=== PATIENT | male | born 1940 | race Caucasian/White ===

== ENCOUNTER 2020-12-17 10:24 | Outpatient (CLI) | payer MEDICARE, OTHER, SELFPAY ==
--- NOTE | 2020-12-17 10:30 | ECG_ITS ---
Measurements Intervals [place] Rate: 64 P: 32 WI: 241 QRS: 34 QRSD: 98 T: 29 QT: 385 QTc: 400 Interpretive Statements SINUS RHYTHM WITH FIRST DEGREE AV BLOCK BASELINE ARTIFACT- I, II, III, AVR, AVL, AVF ABNORMAL ECG Electronically Signed On 12-17-2020 10:58:28 CDT by Williams Win D.O.
== END 2020-12-17 10:25 | disposition home or self-care (01) ==
PROVIDERS: PCP Internal Medicine; Visit Provider Orthopaedic Surgery
DX: Z01.818 Encounter for other preprocedural examination (principal); I10 Essential (primary) hypertension; I44.0 Atrioventricular block, first degree
CPT/HCPCS: 93005

== ENCOUNTER 2020-12-19 03:56 | Day surgery (SDC) | payer MEDICARE, OTHER, SELFPAY ==
[2020-12-11 14:34] VITALS: BMI 25.0
--- NOTE | 2020-12-18 16:27 | PM.IMHP ---
H&P: HPI History of Present Illness Date/Time: 12/18/20 16:27 Chief Complaint: right ankle and hindfoot pain, deformity Narrative: 80-year-old gentleman with chronic right hindfoot pain and deformity. Unrelieved with bracing, injection, anti-inflammatory medication, accommodative shoes and conservative measures. Symptoms on a daily basis. Affect daily activity including standing and ambulation. Presents for operative treatment. Review of Systems Constitutional: Constitutional: Denies fever(s) Eyes: Eyes: Denies blurry vision ENT: Reports Normal hearing present Cardiovascular: Cardiovascular: Denies chest pain and Denies dyspnea Respiratory: Respiratory: Denies dyspnea and Denies wheezing Gastrointestinal: Gastrointestinal: Denies abdominal pain Genitourinary: Genitourinary: Denies urinary urgency Musculoskeletal: Musculoskeletal: Reports as per HPI and Denies numbness Integumentary/Breasts: Skin/Breast: Denies changing lesions and Denies sores Neurologic: Reports Normal hearing present, Denies behavioral changes, Denies confusion, Denies numbness and Denies convulsions Psychiatric: Psychiatric: Denies behavioral changes, Denies confusion and Denies hallucinations Endocrine: Endocrine: Denies heat intolerance Hematologic/Lymphatic: Hematologic/Lymphatic: Denies easy bleeding Allergic/Immunologic: Allergic/Immunologic: Denies wheezing PMFSH Past Medical History Medical History Arthritis of right subtalar joint Hearing loss Inflammatory arthritis Wears glasses Surgical History Surgical History History of quadruple bypass Social History Social History Smoking status: Never smoker Alcohol intake: current Alcohol use details: 2 per month Spiritual care concerns: No Meds Home Medications and Allergies Home Medications Medication Instructions Recorded Confirmed Type aspirin 81 mg tablet,delayed 81 mg PO DAILY 11/06/20 12/11/20 History release levothyroxine 100 mcg capsule 100 mcg PO DAILY 11/06/20 12/11/20 History metoprolol tartrate 25 mg tablet 25 mg PO DAILY 11/06/20 12/11/20 History simvastatin 20 mg tablet 20 mg PO DAILY 11/06/20 12/11/20 History tamsulosin 0.4 mg capsule 0.4 mg PO DAILY 11/06/20 12/11/20 History ibuprofen 800 mg PO Q6H PRN 12/11/20 12/11/20 History mbyimcqpxqnr-efn-vjkj-FA-vit K 1 tablet PO DAILY 12/11/20 12/11/20 History [Adults Multivitamin] Allergies Allergy/AdvReac Type Severity Reaction Status Date / Time No Known Allergies Allergy Verified 12/11/20 14:10 Exam Const: General: healthy appearing; No in distress or confusion Orientation/consciousness: oriented to person, oriented to place, oriented to time and No confusion HENMT: Head: normal to inspection, normocephalic and atraumatic Eyes: Conjunctivae: conjunctivae normal Sclera: sclerae normal Neck: Neck: supple and nontender Resp: Effort & Inspection: normal respiratory effort and no audible wheezes Cardio: Rate: regular rate Rhythm: regular rhythm Skin: General skin exam: no rashes or lesions noted Neuro: General: oriented to person, oriented to place, oriented to time and No confusion Extrem: Right upper extremity: normal to inspection Left upper extremity: normal to inspection Right lower extremity: normal capillary refill, ankle Details: tenderness Location: of the medial malleolus, swelling Details: laterally (sinus tarsi) and abnormal ROM Details: pain with active ROM Details: with inversion and with range as follows ( ankle dorsiflexion -5 degrees, plantar flexion 40?, inversion 10?, eversion 20?) and foot Details: abnormal to inspection (Moderate flatfoot deformity with standing, moderate heel valgus, reduced flexibility) Details: joint swelling (subtalar joint, sinus tarsi), tenderness Location: of the [facility]
[2020-12-19] VITALS (9 sets, daily range): BP systolic 87–151; BP diastolic 55–80; PULSE 43–65; RESP 10–16; TEMP 36.2–36.5; O2SAT 98–100
--- NOTE | ~2020-12-19 | XR_ITS ---
EXAMINATION: XR surgery orthopedic DATE: 12/19/2020 09:42 INDICATION: Right foot arthrodesis TECHNIQUE: 4 fluoroscopic images of the right ankle and hindfoot were obtained during procedure perfo rmed by Dr. Grossman. Radiologist was not present for the imaging or procedure. The amount of fluorosc opy time used during this procedure was 0.5 minutes. COMPARISON: None. FINDINGS: Images demonstrate initially guide pin placement and subsequently fixation with a cannulated compress ion screw and second cannulated lag screw across the subtalar joint for right hindfoot arthrodesis. A lignment appears near-anatomic. No fracture. Polyarticular osteoarthritis, moderate severity at the c alcaneocuboid joint, mild to moderate at the right ankle and mild at the talonavicular and naviculocu neiform articulations. Expected postoperative gas at the subtalar joint and sinus Tarsi. IMPRESSION: 1. Near-anatomic alignment post subtalar arthrodesis with screw fixation. Reviewed, dictated and finalized at location A.
[2020-12-19] MEDS: ACETAMINOPHEN 500 MG TABLET 1000 MG PO (06:50)
[2020-12-19] MEDS: KETOROLAC 15 MG/ML VIAL (*BKC) IV PUSH (06:51)
[2020-12-19] MEDS: LACTATED RINGERS 1,000 ML 30 ML IV CONT ×2 (06:51→10:04)
--- NOTE | 2020-12-19 07:04 | WPDANESEPPF ---
Anes - Initial Pre Proc Eval Procedure: Operation Date: 12/19/20 07:30 Proposed Procedures p Right Subtalar Arthrodesis, Possible Iliac Crest Bone Graft Aspirate(Right) - Moe Grossman MD Date/Time: 12/19/20 07:04 Surgeon: Moe Grossman MD Pre Op Diagnosis: right subtalar arthritis Patient Data Age: 80 Gender: M Height: 1.73 m Weight: 74.85 kg Last Vital Signs Temp 36.5 C 12/19/20 07:01 Pulse 58 L 12/19/20 07:01 Resp 16 12/19/20 07:01 BP 151/80 H 12/19/20 07:01 Pulse Ox 100 12/19/20 07:01 Allergies Allergy/AdvReac Type Severity Reaction Status Date / Time No Known Allergies Allergy Verified 12/19/20 06:37 Home Medications Medication Instructions Recorded Confirmed Type aspirin 81 mg tablet,delayed 81 mg PO DAILY 11/06/20 12/19/20 History release levothyroxine 100 mcg capsule 100 mcg PO DAILY 11/06/20 12/19/20 History metoprolol tartrate 25 mg tablet 25 mg PO DAILY 11/06/20 12/19/20 History simvastatin 20 mg tablet 20 mg PO DAILY 11/06/20 12/19/20 History tamsulosin 0.4 mg capsule 0.4 mg PO DAILY 11/06/20 12/19/20 History ibuprofen 800 mg PO Q6H PRN 12/11/20 12/19/20 History xmsrrxhpkxht-waw-yfjp-FA-vit K 1 tablet PO DAILY 12/11/20 12/19/20 History [Adults Multivitamin] Patient hx anesthesia problems: none Family hx anesthesia problems: none [facility] Past Medical History Medical History (Updated 12/19/20 @ 07:04 by Ayo Zaidi MD) Arthritis of right subtalar joint CAD (coronary artery disease) Hearing loss HTN (hypertension) Hyperlipidemia Inflammatory arthritis Wears glasses Surgical History Surgical History (Updated 12/19/20 @ 07:04 by Ayo Zaidi MD) History of quadruple bypass History of total knee arthroplasty Social History Social History Smoking status: Never smoker Alcohol intake: current Alcohol use details: 2 per month Living arrangements: with family Spiritual care concerns: No Anes - Eval Final PreProcedure Day of Procedure 12/19/20 07:04 Patient weight: normal Heart: regular rate and rhythm Lungs: clear to auscultation Airway: Mallampati scale class II Neurological: alert and oriented Last oral intake: >/= 8 hours ASA classification: III Emergent: no Anesthetic plan: proceed Anesthesia type and monitoring: general ETT and standard monitoring Informed Consent: The patient's anesthetic plan and its attendant risks and benefits were discussed with the patient/family/POA. Questions were solicited and answers provided to the satisfaction of the patient/family/POA.
--- NOTE | 2020-12-19 07:10 | WPDHPUPDATE1 ---
History and Physical Update Update Date/Time: 12/19/20 07:10 History and Physical has been reviewed, including an updated exam of the patient. There are NO changes in the patient's condition. Risks, benefits, and alternatives have been discussed and questions answered. Patient agrees to proceed with procedure.
[2020-12-19] MEDS: ceFAZolin 2 GM/D5W 50 ML 2 GM/50 ML BAG IVPB (07:30)
[2020-12-19 08:27] LABS: Basophils Percent Auto 0.3 % (0.2-1.2); Eosinophils Absolute Auto 0.2 K/mm3 (0-0.3); Eosinophils Percent Auto 5.8 % (0-4.4); Hematocrit 30.9 % (42.0-52.0); Hemoglobin 10.4 g/dL (14.0-18.0); Immature Granulocyte Absolute 0.01 K/mm3 (0.00-0.031); Immature Granulocyte Percent A 0.3 % (0-0.5); Lymphocytes Absolute Auto 1.01 K/mm3 (0.9-3.2); Lymphocytes Percent Auto 26.6 % (18.3-44.2); Mean Corpuscular HGB Conc 33.7 g/dl (32-36); Mean Corpuscular Hemoglobin 35.6 pg (26-34); Mean Corpuscular Volume 105.8 fl (80-100); Mean Platelet Volume 10.1 fl (7.4-10.4); Monocytes Absolute Auto 0.5 K/mm3 (0.1-0.6); Monocytes Percent Auto 13.5 % (2.6-8.5); Neutrophils Percent Auto 53.5 % (45.5-73.1); Platelet Count Result 105 k/mm3 (150-375); Red Blood Count 2.92 M/mm3 (4.6-6.20); Red Cell Distribution Width 13.9 % (11.5-14.5); White Blood Count 3.8 K/mm3 (4.5-10.0)
[2020-12-19] MEDS: BUPIVACAINE/EPINEPHRINE 0.5% 30 ML VIAL INFILTRATE (08:34)
[2020-12-19] MEDS: BUPIVACAINE HCL 0.5% PF 30 ML VIAL INFILTRATE (08:34)
[2020-12-19 08:40] LABS: Rheumatoid Factor < 8.6 IU/ML (<12)
[2020-12-19 08:41] LABS: Anion Gap 7 mmol/L (8-16); Blood Urea Nitrogen 20 mg/dL (9-20); CRP < 0.5 mg/dL (<1.0); Calcium 8.7 mg/dL (8.4-10.2); Carbon Dioxide 25 mmol/L (22-30); Chloride 106 mmol/L (98-107); Estimated CRCL calculation 64 ml/min; Estimated Glomerular Filt Rate > 60; Glucose 103 mg/dL (65-110); Sodium 138 mmol/L (137-145)
[2020-12-19 08:57] LABS: Erythrocyte Sedimentation Rate 83 mm/hr (0-20)
[2020-12-19 09:39] LABS: Uric Acid 5.9 mg/dL (3.5-8.5)
--- NOTE | 2020-12-19 10:17 | W.PM.PROC2 ---
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 Failed conservative treatment with bracing, activity modification, anti-inflammatories and injections. Presents now for operative treatment. 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 Description of Procedure What was done: Patient identified in the preoperative holding. Informed consent given. Operative extremity marked. Patient received intravenous antibiotics. Patient brought to the operating room where underwent general anesthetic by anesthesia team. Positioned semi lateral decubitus on operating room table. gel for the bony prominences placed, VAC beanbag for positioning. Time-out performed confirming the patient, site of the surgery and the plan. Right lower extremity and the right iliac crest prepped draped usual sterile surgical fashion using a ChloraPrep skin solution. The iliac crest was addressed 1st. Local anesthetic with 0.5% Marcaine with epinephrine used. Fifteen blade knife to make an incision posterior to the anterior superior iliac spine. Dissection carried down to the iliac crest. Bone graft retention device then placed through the iliac crest into the intramedullary position. Bone graft dowels obtained. 60 cc of bone marrow aspirate also obtained and concentrated for the platelet layer. Wound thoroughly irrigated antibiotic solution and skin closed with subcutaneous 3 0 Monocryl interrupted suture. Sterile dressing applied. Attention then turned to the right foot. Longitudinal incision made over the sinus tarsi with a 15 blade knife. Hemostasis controlled electrocautery. Capsulotomy performed. 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 This was removed and passed off as specimen. Subtalar joint and prepared with osteotomes, rongeur, curettes. There was destruction lateral portion of the joint with the valgus deformity. We worked to remove cartilage from the medial portion of the joint to realign the subtalar joint. With realignment there is noted to be deficiency on the lateral aspect. Iliac crest bone graft wedge was then opened and fashioned to be used laterally. Subtalar joint was then reduced and provisionally pinned. In image intensification confirmed alignment. Fixation performed with cannulated screws with good compression. Lateral portion of the joint was then repaired with the iliac crest bone graft. The autograft which had been previously obtained was placed into the arthrodesis site prior to fixation. Final positioning checked with image intensification and noted to be good. Wound then thoroughly irrigated antibiotic solution. The fascia repaired with 0 Vicryl interrupted suture. Subcutaneous tissue repaired with 3 Monocryl interrupted sutures skin repaired with 4 nylon running suture. Sterile dressing applied. The patient was then woken from anesthesia, extubated and taken to the recovery room in stable condition. All sponge, needle, instrument counts were correct at the end of the case. Implants Arthrex 7.0 mm headed screw x1, 7.0 mm headless screw x1 Estimated Blood Loss -10.0 Tourniquet Time 85 Drains No Packing No Pathology yes ( synovial tissue from the right ankle subtalar joint) Complications None Condition stable Disposition PACU
[2020-12-23 19:39] LABS: Anti Cyclic Citrullinated Pept <16 Units (<20)
[2020-12-24 12:57] LABS: HLA B27 Negative (Negative)
== END 2020-12-19 12:41 | disposition home or self-care (01) ==
PROVIDERS: PCP Internal Medicine; Visit Provider Orthopaedic Surgery
PROC: (CPT 28750; principal; 2020-12-19 07:30)
DX: M13.871 Other specified arthritis, right ankle and foot (principal); M65.871 Other synovitis and tenosynovitis, right ankle and foot; M1A.9XX1 Chronic gout, unspecified, with tophus (tophi); I10 Essential (primary) hypertension; E78.5 Hyperlipidemia, unspecified; I25.10 Atherosclerotic heart disease of native coronary artery without angina pectoris; Z95.1 Presence of aortocoronary bypass graft; E03.9 Hypothyroidism, unspecified; Z79.899 Other long term (current) drug therapy
CPT/HCPCS: 28725; 20900; 36415; 80048; 84550; 85025; 85652; 86038; 86140; 86200; 86430; 86812; 88305; 88309; 88311; A9270; C1713; J0690; J1100; J1170; J1644; J1885; J2250; J2370; J2405; J2704; J2710; J3010; J7120

== ENCOUNTER 2021-05-22 09:00 | Outpatient (RCR) | payer MEDICARE, OTHER, SELFPAY ==
--- NOTE | 2021-04-17 11:22 | PTOPEVAL ---
Thank you for referring Yohan Villalba to [facility].? The patient is scheduled to be seen for therapy? 2x/week for 4-6 weeks. Please review, sign, date and return this plan of care LAITH. I agree with and certify that the following plan of care is medically necessary. Referring Physician Date Admitting Provider: Attending Provider: Moe Grossman MD Referring Provider: *PT Outpatient Evaluation Start: 04/17/21 08:52 Freq: Status: Active Protocol: Document 04/17/21 09:00 AW (Rec: 04/17/21 09:44 AW [id number]) Therapy Assessment Status Assessment Status Assessment Status Evaluation Outpatient Past Medical History Past Medical History Source of Past Medical History Recalled from Previous Visit, Confirmed with Patient/Family Neurological History Hx Neurological Disorders No Significant History Cardiovascular History Hx Coronary Artery Bypass Graft Yes: 4 VESSEL EITHER IN 2010 Hx Hypercholesterolemia Yes Hx Hypertension Yes Hx Other Cardiac Disorders Yes: DR VELA ONCE A YR LAST SEEN JAN 2021 Respiratory History Hx Respiratory Disorders No Significant History Gastrointestinal History Hx Gastrointestinal Disorders No Significant History Genitourinary History Hx Genitourinary Disorders No Significant History Musculoskeletal History Hx Joint Replacement Yes: LTKA EITHER 2007 Hx Other Musculoskeletal Disorders Yes: RT SUBTALAR ARTHRITIS Hematological History Hx Hematological Disorders No Significant History Endocrine History Hx Hypothyroidism Yes HEENT History Hx HEENT Disorders No Significant History Integumentary History Hx Skin Disorders No Significant History Reproductive History Hx Reproductive Disorders No Significant History Psychosocial History Hx Psychiatric Disorders No Significant History Pain History History of Any Previous or Ongoing No Significant History Instance of Pain Anesthesia History Hx Anesthesia Reactions No Significant History Evaluation Information Problem Diagnosis M19.071; Z48.89-OA of R ankle/ foot; surgical aftercare Subjective Information Sprained ankle ~25 years ago, Query Text:As Reported By Patient/ most pain within last year, Family december 18 had 2 pins put in, followed up with Chauncey ~2 weeks ago, wears boot at home about 30% of the time at home, goes back and follows up in mid-[place] going up/down stairs is still difficult, walking sometimes feels better,
--- NOTE | 2021-05-22 14:34 | PCPTNOTE ---
Admitting Provider: Attending Provider: Moe Grossman MD Patient:Yohan Villalba Date of :1940 05/22/21 PHYSICAL THERAPY DISCHARGE SUMMARY Yohan has been seen for 9 PT visits since initial evaluation. He has demonstrated significant improvements in his overall strength and ROM since starting PT services. He reports that he feels things are going very well and knows there are not exactly where they were prior to surgery but that he also has to keep doing his exercises at home to continue to progress. He continues to demonstrate decreased heel strike and at times an antalgic gait pattern. He is being discharged from skilled PT at this time with education in a home exercise program and invited to call with any questions or concerns. Thank you for referring this patient to [facility]. Please review, sign, date and return this discharge summary LAITH. I have been updated about the patient's current status and I agree with discharge from the above service at this time. Referring Physician Date
== END 2021-07-03 09:07 | disposition home or self-care (01) ==
LOC: ANHHIPT 09:00
PROVIDERS: PCP Internal Medicine; Visit Provider Orthopaedic Surgery
DX: M19.071 Primary osteoarthritis, right ankle and foot (principal)
CPT/HCPCS: 97110; 97112; 97116; 97140; 97161; 97530

== ENCOUNTER 2023-06-22 12:48 | Outpatient (RCR) | payer MEDICARE, SELFPAY ==
--- NOTE | 2023-06-22 13:59 | PTOPEVAL1 ---
Assessment and note entered by Pearl Styles, PT Evaluation Information Assessment Status Evaluation Diagnosis right shoulder pain, sprain unspec rotator cuff Subjective Information Started bothering him about a year ago. Can move shoulder but when tries to lift a gallon of milk can't raise higher than shoulder level. Can feel it in scapula with lifting. Thinks with exercises can probably get it . No problems with other activities Can hear it clicking too Reported Pain Level Pain Score 0: Self Report Assessment PT Clinical Summary Pt reports shoulder has been bothersome for about a year. States has no pain currently, reports gets a clicking with rolling RUE posterior and around to anterior. Special testing shows likely rotator cuff tear likely full thickness due to inability to hold against resistance testing. Discussed findings with patient and encouraged pt to perform normal activities without hesitance and to listen to your body . Pt does not appear to require skilled services at this time. Plan of Care PT Services Indicated No These treatments will address the objective and functional deficits as defined above. The patient will be advanced safely and appropriately in order for the patient to progress towards his/her prior level of function. Additional exercises will be introduced and as well as a comprehensive home exercise program upon discharge, if needed, ?to ensure carryover of functional gains achieved in the clinic. This treatment plan has been reviewed and agreement upon by the patient.
== END 2023-06-22 14:33 | disposition home or self-care (01) ==
LOC: ANHHIPT 12:48
PROVIDERS: PCP Family Medicine; Visit Provider Family Medicine
DX: M25.511 Pain in right shoulder (principal); S43.429D Sprain of unspecified rotator cuff capsule, subsequent encounter
CPT/HCPCS: 97161

== ENCOUNTER 2024-05-16 09:50 | Outpatient (CLI) | payer MEDICARE, SELFPAY ==
--- NOTE | 2024-05-16 11:38 | ECG_ITS ---
Test Date: 2024-05-16 11:55:15 Measurements Intervals [place] Rate: 64 P: 99 FL: 272 QRS: 73 QRSD: 107 T: 52 QT: 423 QTc: 438 Interpretive Statements SINUS RHYTHM WITH FIRST DEGREE AV BLOCK WITH OCCASIONAL SUPRAVENTRICULAR PREMATURE COMPLEXES WARNING: DATA QUALITY MAY AFFECT INTERPRETATION No previous ECG available for comparison Electronically Signed On 05-16-2024 15:28:58 DEATH CLEARANCE COORDINATOR by Satish Webb M.D.
[2024-05-16 12:48] LABS: Albumin Level 4.3 g/dL (3.5-5.1)
[2024-05-16 12:50] LABS: Add Urine Microscopic? YES; Appearance Urine Clear (Clear); Bacteria Urine None Seen /hpf; Bilirubin Urine Negative (Negative); Blood Urine Negative (Negative); Color Urine Yellow (Yellow); Glucose Urine UA Negative (Negative); INR 1.1; Ketones Urine Negative (Negative); Leukocyte Esterase Ur Negative LEU/UL (Negative); Nitrate Urine Negative (Negative); Non Pathogenic Casts 0-2; Protein Urine Trace mg/dL (Negative); Prothrombin Time 14.3 Seconds (11.1-14.7); RBC Urine 0-2 /hpf (0-2); Specific Grav Ur 1.021 (1.001-1.035); Squamous Epithelial Cell Urine None Seen /hpf (Few); WBC Urine 0-5 /hpf (0-3)
[2024-05-16 12:51] LABS: Partial Thromboplastin Time 34.2 Seconds (22.3-36.8)
[2024-05-16 13:02] LABS: Urine Cotinine NEGATIVE
[2024-05-16 14:10] LABS: MRSA (PCR) NOT DETECTED (NOT DETECTE)
== END 2024-05-16 09:51 | disposition home or self-care (01) ==
PROVIDERS: PCP Nurse Practitioner Family; Visit Provider Orthopaedic Surgery
DX: M17.11 Unilateral primary osteoarthritis, right knee (principal); Z01.818 Encounter for other preprocedural examination
CPT/HCPCS: 80307; 81001; 82040; 85610; 85730; 87641; 93005

== ENCOUNTER 2024-05-31 14:18 | Day surgery (SDC) | payer MEDICARE, SELFPAY ==
[2024-05-16 10:18] VITALS: BP 131/74; PULSE 62; RESP 16; TEMP 36.7; O2SAT 98; BMI 24.5
--- NOTE | 2024-05-16 10:42 | PC.NURSE ---
Report to the Outpatient Waiting Room, entrance under the green pavilion located off [facility], at time ___8:30AM____ on date ___05/31/24____. Planned Procedure Time: ___10:30AM .? Time changes happen often and if your time is changed the preop area will call you the afternoon before. - You and your visitor will be asked to self-screen and do not enter if you have any COVID symptoms. Please call surgeon if you need to reschedule. - A mask is optional within the hospital at this time. Patients may have clear liquids (water, carbonated beverages, clear teas, apple juice) until 3 hours prior to surgery (7:30AM) with a maximum of 20 ounces. - No food from midnight until time of surgery and no smoking. This includes no chewing gum, candy or mints. Take only the following medications with a SIP of water on the morning of surgery: ___LEVOTHYROXINE, METOPROLOL DO NOT STOP ANY OF YOUR OTHER PRESCRIPTION MEDICATIONS PRIOR TO SURGERY EXCEPT THE FOLLOWING Medications to discontinue per physician ____HOLD ALL VITAMINS/SUPPLEMENTS 3 DAYS PRE-OP PER ANESTHESIA- LAST DOSE 05/27/24 HOLD ASPIRIN AND CLOPIDOGREL PER DR MCLEOD Please no make-up, nail grenadian, hairspray, perfume, deodorant, or body powder the day of surgery.? No jewelry (including any body piercings) or valuables the day of surgery, leave them at home.? Please take a shower or bath the night before, or the morning of, surgery with an antibacterial soap.? Wear comfortable, loose fitting clothing.? Children are encouraged to wear pajamas. - Jewelry must be removed prior to entering the operating room.? Rings and piercings that are not removed may be cut off. - The hospital will not accept responsibility for valuables.? - Please leave all valuables, including medications, at home the day of surgery. If you are going home after surgery, a licensed four horse hitch driver must drive you home.? - NO public transportation without another adult if you receive anesthesia. - We recommend that an adult stay with you for 24 hours following discharge. - We also recommend that you do not drive, make important decision, drink alcoholic beverages, or take any drugs that were not prescribed by your health care provider for at least 24 hours after your discharge time. Follow any additional instructions given to you from your surgeon. HIBICLENS SHOWERS PER DR MCLEOD Telephone instructions given to ___PATIENT and asked if any additional questions and then verbalized understanding. Patient advised to call surgeon office or pre surgery nurse liaison [phone] if any additional questions.
[2024-05-31] VITALS (15 sets, daily range): BP systolic 98–167; BP diastolic 64–90; PULSE 58–77; RESP 10–20; TEMP 36.2–36.9; O2SAT 95–100
--- NOTE | ~2024-05-31 | XR_ITS ---
EXAMINATION: [id number] DATE: 05/31/2024 13:20 INDICATION: Right knee arthroplasty. Postop. TECHNIQUE: 2 views of right knee were obtained. COMPARISON: None. FINDINGS: There is a total right knee arthroplasty without patellar resurfacing in near-anatomic alig nment. No fracture. There is gas in the knee joint and soft tissues, consistent with recent surgery. Anterior skin fabian are noted. IMPRESSION: 1. Total right knee arthroplasty in near-anatomic alignment. Reviewed, dictated and finalized at location A. [facility]
--- OUTSIDE RECORDS SUMMARY | 2024-05-31 02:11 | XMS_ITS | Encounter Summary ---
Author Organization [facility] Address [address] [place] [address] Care Team Providers Care Pipe Manufacture Supervisor Name Role Phone Sukhwinder Yuan MD Primary Care Provider [phone] Encounter Details Date Type Department Care Team (Late st Contact Info) Description 10/08/2022 Lab Requisition [facility] [address] [place] [address] Kamille Billings DO [address] [facility] [address] [place] [address] Social History Tobacco Use Types Packs/Day Years Used Date Smoking Tobacco: Never Assessed Sex and Gender Information Value Date Recorded Sex Assigned at Not on file Gender Identity Not on file Sexual Orientation Not on file documented as of this encounter Plan of Treatment Not on file documented as of this encounter Procedures Procedure Name Priority Date/Time Associated Diagnosis Comments DERMATOPATHOLOGY Routine 10/08/2022 9:58 AM CDT documented in this encounter Results * DERMATOPATHOLOGY (10/08/2022 9:58 AM CDT) Case Report Dermatopathology Report ? Case: [id number] ? Authorizing Provider: ??Kamille Billings, DO ?? Collected: ? 10/08/2022 09:58 AM ? Ordering Location: ? [facility] ? Received: ?10/09/2022 08:04 AM ? Pathologist: ? Carmel Dominique, ? MD ? Specimen: ?Skin, right forearm ? 3 4:12 PM CDT DERMATOPATHOLOGY LABORATORY Final Diagnosis Specimen A. 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 The specimen consists of a shave biopsy measuring [id number]. Jar 0. 3 4:12 PM T DERMATOPATHOLOGY LABORATORY Microscopic Description Specimen A. SKIN, right forearm: The epidermis shows parakeratosis, full thickness disorderly maturation of keratinocytes, mitoses at different levels, and dyskeratotic cells. The lesion extends to the base of the biopsy. COMMENT: An invasive squamous cell carcinoma cannot be ruled out. 3 4:12 PM CDT DERMATOPATHOLOGY LABORATORY Disclaimer An external and internal positive and negative controls are appropriate for the histochemical, immunohistochemical and immunofluorescence stain(s) in this case (if any), except where stated explicitly. The performance characteristics of the stain(s) cited in this report were developed and its performance characteristic determined by the Dermatopathology Laboratory at [facility], directed by Dr. Mohan Hitchcock. These tests need not be, and therefore are not, approved by the [place] Food and Drug Administration. The tests are used for clinical purposes. Billing Codes Specimen Charges Stain Charges 92860 1 3 4:12 PM CDT DERMATOPATHOLOGY LABORATORY Embedded Images 3 4:12 PM CDT DERMATOPATHOLOGY LABORATORY Pathology/Cytolo gy TISSUE SPECIMEN FROM SKIN / Unknown 10/08/2022 9:58 AM CDT 10/09/2022 8:04 AM CDT Kamille Billings DO LAB - PATHOLOGY/C YTOLOGY ORDERABLES DERMATOPATHOLOGY LABORATORY [facility] - Department of Dermatology [facility] Medicine [address] [place] [address], [address] [phone] documented in this encounter Visit Diagnoses Not on filedocumented in this encounter Care Teams Pipe Manufacture Supervisor Relationship Specialty Start Date End Date Sukhwinder Yuan MD [address] [place] [phone] PCP - General 01/01/21 documented as of this encounter
--- OUTSIDE RECORDS SUMMARY | 2024-05-31 02:11 | XMS_ITS | Clinical Summary ---
Author Organization [facility] Address [address] [place] [address] Care Team Providers Care Railroad Brake Repairer Name Role Phone Sukhwinder Yuan MD Primary Care Provider Source Comments [facility],non-owned Affiliates and Associated Physician Practices is amultiple site organization consisting of ambulatory clinics and hospital sitesin [place], [place], [place] and [place]. This disclosure is being madepursuant to the Care Everywhere program and may not contain all information available regarding this patient. Last updated 18.[facility] Social History Tobacco Use Types Packs/Day Years Used Date Smoking Tobacco: Never Assessed Sex and Gender Information Value Date Recorded Sex Assigned at Not on file Gender Identity Not on file Sexual Orientation Not on file Plan of Treatment Health Maintenance Due Date Last Done Comments DTAP/TDAP/TD VACCINES (1 - Tdap) 1961 PNEUMOCOCCAL VACCINE 50+ (1 of 1 - PCV) 1992 ZOSTER VACCINE (1 of 2) 1992 Respiratory Syncytial Virus (RSV) Vaccine Pt: or over 60 yrs (1 - 1-dose 75+ series) 2017 COVID-19 VACCINE (2023-2 5 season) 2024 INFLUENZA VACCINE (#1) 2024 DEPRESSION SCREENING 05/03/2024 MEDICARE AWV ? CALENDAR YEAR 2024 HEPATITIS B VACCINE Aged Out No longe r eligible based on patient's age to complete this topic HIB VACCINE Aged Out No longer eligi ble based on patient's age to complete this topic HPV VACCINE Aged Out No longer eligi ble based on patient's age to complete this topic MENINGOCOCCAL (Group B) VACCINE Aged Out No longer eligible based on patient's age to complete this topic MENINGOCOCCAL VACCINE Aged Out No billie topher eligible based on patient's age to complete this topic Care Teams Railroad Brake Repairer Relationship Specialty Start Date End Date Sukhwinder Yuan MD [facility] [place] [place] [address] PCP - General 01/01/21
--- OUTSIDE RECORDS SUMMARY | 2024-05-31 02:11 | XMS_ITS | Encounter Summary ---
Author Organization [facility] Address [address] [place] [address]. [place] [address] [place] [address] Care Team Providers Care Ratoprinter Name Role Phone Sukhwinder Yuan MD Primary Care Provider [phone] Finn Blevins MD Unavailable [phone] Ghulam Ford MD Primary Care Provider [phone] Hortensia Alarcon [facility] Primary Care Provider + Encounter Details Date Type Department Care Team (Late st Contact Info) Description 11/09/2016 Abstract [facility] AT [address] [address] Destinee Medina MA Social History Tobacco Use Types Packs/Day Years Used Date Smoking Tobacco: Never Smokeless Tobacco: Never Alcohol Use Standard Drinks/Week Comments Yes 0 (1 standard drink = 0.6 oz pur e alcohol) Occasionally Sex and Gender Information Value Date Recorded Sex Assigned at Not on file Legal Sex Male 1:49 AM CDT Gender Identity Not on file Sexual Orientation Not on file Occupation Industry Job Start Date Job End Date DQ Not on file Not on file Not on file documented as of this encounter Plan of Treatment Upcoming Encounters Date Type Department Care Team (Late st Contact Info) Description 03/06/2025 1:00 PM LEARNING AND DEVELOPMENT INTERN Appointment [facility] [address] [place] [address] Jose Camacho MD Three [facility]. [address] [place], [place] [address] 03/26/2025 9:30 AM LEARNING AND DEVELOPMENT INTERN Office Visit [facility] [address] [place] [address] Barbara Rosario, DUONG [address] [facility] [address] [place], [place] [address] Finn Blevins MD Three [facility]. [address] [place], [place] [id number] documented as of this encounter Procedures Procedure Name Priority Date/Time Associated Diagnosis Comments CBC (OUTSIDE LAB) Routine 12/05/2018 PROSTATE SPECIFIC ANTIGEN,TOTAL Routine 12/05/2018 COMPREHENSIVE METABOLIC PANEL Routine 12/05/2018 LIPID PANEL Routine 12/05/2018 THYROID STIM HORMONE TSH Routine 12/05/2018 CBC (OUTSIDE LAB) Routine 11/08/2017 CBC (OUTSIDE LAB) Routine 08/24/2017 COMPREHENSIVE METABOLIC PANEL Routine 08/24/2017 LIPID PANEL Routine 08/24/2017 THYROID STIM HORMONE TSH Routine 08/24/2017 FOLATE (OUTSIDE LAB) Routine 10/01/2016 CBC (OUTSIDE LAB) Routine 10/01/2016 VITAMIN B-12 Routine 10/01/2016 PROSTATE SPECIFIC ANTIGEN,TOTAL Routine 10/01/2016 COMPREHENSIVE METABOLIC PANEL Routine 10/01/2016 IRON BINDING TEST Routine 10/01/2016 THYROID STIM HORMONE TSH Routine 10/01/2016 IRON Routine 10/01/2016 FERRITIN Routine 10/01/2016 documented in this encounter Results * PROSTATE SPECIFIC ANTIGEN,TOTAL (12/05/2018) PSA 0.7 12/05/2018 us Doc [facility] Final Result * CBC (OUTSIDE LAB) (12/05/2018) WBC 3.9 HGB 11.8 HCT 34.8 PLT 131 12/05/2018 us Doc [facility] LAB-OUTSIDE/ABSTRACTED Final Result * THYROID STIM HORMONE, TSH (12/05/2018) TSH 1.63 12/05/2018 us Doc [facility] Final Result * COMPREHENSIVE METABOLIC PANEL (12/05/2018) SODIUM S/P/B 141 POTASSIUM S/P/B 4.1 CO2 27 CHLORIDE S/P/B 107 GLUCOSE 114 mg/dL CALCIUM S/P/B 9.2 BUN 23 CREATININE S/P/B 1.02 0.7 - 1.3 EGFR AFR. AMER. 82 EGFR NON-AFR. AMER. 71 <=90 ALKALINE PHOSPHATASE S/P/B 60 ALT 13 AST 20 BILIRUBIN TOTAL S/P/B 0.7 ALBUMIN S/P/B 4.2 3.5 - 5.0 TOTAL PROTEIN S/P/B 7.0 GLOBULIN 2.8 12/05/2018 us Doc [facility] Final Result * LIPID PANEL (12/05/2018) CHOLESTEROL 106 HDL 46 TRIGLYCERIDES 117 NON HDL CHOLESTEROL 60 LDL (CALCULATED) 40 12/05/2018 us Doc [facility] Final Result * CBC (OUTSIDE LAB) (11/08/2017) WBC 4.0 HGB 12.5 HCT 36.9 PLT 130 11/08/2017 us Doc [facility] LAB-OUTSIDE/ABSTRACTED Final Result * THYROID STIM HORMONE, TSH (08/24/2017) TSH 2.619 08/24/2017 us Doc [facility] Final Result * LIPID PANEL (08/24/2017) CHOLESTEROL 89 HDL 48 TRIGLYCERIDES 85 LDL (CALCULATED) 24 08/24/2017 us Doc [facility] Final Result * COMPREHENSIVE METABOLIC PANEL (08/24/2017) SODIUM S/P/B 141 POTASSIUM S/P/B 4.1 CO2 27.2 CHLORIDE S/P/B 105 GLUCOSE 100 mg/dL CALCIUM S/P/B 8.6 BUN 22 CREATININE S/P/B 0.96 0.7 - 1.3 EGFR AFR. AMER. 89 EGFR NON-AFR. AMER. 77 <=90 ALKALINE PHOSPHATASE S/P/B 66 ALT 17 AST 27 BILIRUBIN TOTAL S/P/B 0.4 ALBUMIN S/P/B 3.8 3.5 - 5.0 TOTAL PROTEIN S/P/B 7.1 08/24/2017 us Doc [facility] Final Result * CBC (OUTSIDE LAB) (08/24/2017) WBC 4.2 HGB 11.8 HCT 35.8 PLT 112 08/24/2017 us Doc [facility]-OUTSIDE/ABSTRACTED Final Result * PROSTATE SPECIFIC ANTIGEN,TOTAL (10/01/2016) PSA 0.6 10/01/2016 us Doc [facility] Final Result * FOLATE (OUTSIDE LAB) (10/01/2016) FOLATE 16.4 10/01/2016 Doc [facility]-OUTSIDE/ABSTRACTED Final Result * VITAMIN B-12 (10/01/2016) Pathologist [facility] VITAMIN B12 S/P/B 379 10/01/2016 us Doc [facility] Final Result * CBC (OUTSIDE LAB) (10/01/2016) WBC 4.1 HGB 12.3 HCT 35.3 PLT 151 10/01/2016 us Doc [facility]-OUTSIDE/ABSTRACTED Final Result * THYROID STIM HORMONE, TSH (10/01/2016) TSH 2.52 10/01/2016 us Doc [facility] Final Result * COMPREHENSIVE METABOLIC PANEL (10/01/2016) SODIUM S/P/B 138 POTASSIUM S/P/B 4.1 CO2 26 CHLORIDE S/P/B 103 GLUCOSE 89 CALCIUM S/P/B 9.2 BUN 24 CREATININE S/P/B 0.93 0.7 - 1.3 EGFR AFR. AMER. 93 EGFR NON-AFR. AMER. 81 <=90 ALKALINE PHOSPHATASE S/P/B 51 ALT 13 AST 20 BILIRUBIN TOTAL S/P/B 0.5 ALBUMIN S/P/B 4.0 3.5 - 5.0 TOTAL PROTEIN S/P/B 7.1 GLOBULIN 3.1 10/01/2016 us Doc [facility] Final Result * FERRITIN (10/01/2016) FERRITIN 286 10/01/2016 us Doc [facility] Final Result * IRON BINDING TEST (10/01/2016) IRON BINDING CAPACITY 280 10/01/2016 us Doc [facility] Final Result * IRON (10/01/2016) IRON 70 10/01/2016 us Doc [facility] Final Result documented in this encounter Visit Diagnoses Not on filedocumented in this encounter Care Teams Ratoprinter Relationship Specialty Start Date End Date Sukhwinder Yuan MD PCP - General INTERNAL MEDICINE 10/02/15 03/02/22 Ghulam Ford MD [address] [place] [id number] PCP - General FAMILY PRACTICE 03/03/22 02/08/24 Hortensia Alarcon, SECURITY INFRASTRUCTURE ENGINEER- [address] [place] [address] PCP - General Nurse Practitioner Family 02/09/24 Finn Blevins MD [facility]. [address] [address] [place] [facility] [employer] CARDIOVASCULAR DISEASE 10/02/15 documented as of this encounter
--- OUTSIDE RECORDS SUMMARY | 2024-05-31 02:11 | XMS_ITS | Clinical Summary ---
Author Organization [facility] Address [address] [place] [address]. [place] [address] [place] [address] Care Team Providers Care Train Examiner Name Role Phone Finn Blevins MD Unavailable [phone] Hortensia Alarcon [facility] Primary Care Provider + Allergies No known active allergies Medications levothyroxine 100 MCG tablet Take 1 tablet (100 mcg total) by mouth every morning. 3 Active tamsulosin 0.4 MG Cap Take 1 capsule (0.4 mg total) by mouth daily. 6 Active METOPROLOL SUCCINATE ER 25 MG 24 hr tablet TAKE 1 TABLET DAILY 90 tablet 3 9 Active sildenafil (VIAGRA) 50 MG tablet Take 1 tablet (50 mg total) by mouth as needed for Erectile Dysfunction. 5 tablet 1 Active allopurinol 300 MG tablet Take 1 tablet (300 mg total) by mouth daily. 1 Active aspirin EC (ECOTRIN) 81 MG tablet Take 1 tablet (81 mg total) by mouth daily. 90 tablet 2 4 Active Apoaequorin (PREVAGEN) 10 MG Cap Take by mouth. Active atorvastatin (LIPITOR) 80 MG tablet Take 1 tablet (80 mg total) by mouth nightly at bedtime. 90 tablet 3 5 Active clopidogrel (PLAVIX) 75 MG tablet Take 1 tablet (75 mg total) by mouth daily. 90 tablet 2 5 Active atorvastatin (LIPITOR) 80 MG tablet Take 1 tablet (80 mg total) by mouth nightly at bedtime. 90 tablet 4 05/15/19 25 Discontinu ed(Reorder ) clopidogrel (PLAVIX) 75 MG tablet Take 1 tablet (75 mg total) by mouth daily. 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 Encounters Date Type Department Care Team Description 05/25/2024 Telephone [facility] [address] [address] Barbara Rosario FNP Information ([employer]) 05/15/2024 Telephone [facility] [address] [address] Barbara Rosario, EXECUTIVE DIRECTOR SHELTERED WORKSHOP Medication 04/14/2024 Telephone [facility] [address] [address] Barbara Rosario, EXECUTIVE DIRECTOR [employer] WORKSHOP Results 04/06/2024 Telephone [facility] [address] [address] Finn Blevins MD Surgical Clearance 04/05/2024 11:00 AM FINE DINING SERVER - 04/05/2024 11:59 PM FINE DINING SERVER Hospital Encounter [facility] [address] [place] [address] Barbara Rosario FNP Coronary Artery Disease; Snoring; Fatigue Discharge Disposition: Home or Self Care (Routine Discharge) 04/05/2024 Travel 03/31/2024 8:57 AM FINE DINING SERVER - 03/31/2024 11:59 PM FINE DINING SERVER Hospital Encounter [facility] [address] [place] [address] Finn Blevins MD Discharge Disposition: Home or Self Care (Routine Discharge) 03/31/2024 Travel 03/20/2024 9:00 AM FINE DINING SERVER [place] [facility] [address] [place] [address] Barbara Rosario FNP Coronary Artery Disease; Murmur; Neurologic Problem 03/20/2024 Travel 03/15/2024 10:30 AM FINE DINING SERVER Office Visit [facility] [id number] [place] [address] Jose Camacho MD Carotid Stenosis 03/15/2024 [facility], [address] [address] Jose Camacho MD from Last 3 Months Immunizations Name Administration Dates Next Due Fluad influenza vaccine, Jesus Alberto drivalent (aIIV4), Inactivated, adjuvanted, preservative free, 0.5 mL,IM use 02/06/2020 P[facility]ZER COVID-19 (ORIGINAL FO RMULATION, PURPLE CAP) mRNA, LNP-S, PF, 30 MCG/0.3 ML DOSE 06/28/2020,06/05/2020 Family History Medical History Relation Comments Family history is positive f or heart disease, high blood pressure and sudden . Other Relation Status Comments Other Social History Tobacco Use Types Packs/Day Years Used Date Smoking Tobacco: Never Smokeless Tobacco: Never Alcohol Use Standard Drinks/Week Comments Yes 0 (1 standard drink = 0.6 oz pur e alcohol) Occasionally B1300 Health Literacy Answer Date Recor ded How often do you need to hav e someone help you when you read instructions, pamphlets, or other written material from your doctor or pharmacy? Rarely 02/09/2024 [facility] Utilities Answer Date Recorded In the past 12 months has th e [employer], gas, oil, or water [employer] threatened to shut off services in your home? No 02/09/2024 Humiliation, Afraid, Rape, and Kick questionnair e Answer Date Recorded Within the last year, have y ou been afraid of your partner or ex-partner? No 02/09/2024 Within the last year, have y ou been humiliated or emotionally abused in other ways by your partner or ex-partner? No Within the last year, have y ou been kicked, hit, slapped, or otherwise physically hurt by your partner or ex-partner? No 02/09/2024 Within the last year, have y ou been raped or forced to have any kind of sexual activity by your partner or ex-partner? No 02/09/2024 Social Connection and Isolat ion Panel [NHANES] Answer Date Recorded Frequency of Communication w ith Friends and Family Not on file 02/09/2024 How often do you get togethe r with friends or relatives? Three times a week 02/09/2024 How often do you attend chur ch or restoration services? More than 4 times per year 02/09/2024 Do you belong to any clubs o r organizations such as denominational groups, unions, fraternal or athletic groups, or school groups? No 02/09/2024 How often do you attend meet ings of the clubs or organizations you belong to? More than 4 times per year 02/09/2024 Are you , , di vorced, , never , or living with a partner? 02/09/2024 AUDIT-C Answer Date Recorded Q1: How often do you have a drink containing alcohol? Never 02/09/2024 Q2: How many drinks containi ng alcohol do you have on a typical day when you are drinking? Patient does not drink Q3: How often do you have si x or more drinks on one occasion? Never 02/09/2024 Overall Financial Resource Strain (CARDIA) Answe r Date Recorded How hard is it for you to pa y for the very basics like food, housing, medical care, and heating? Not hard at all 02/09/2024 [facility] [place] of Occupat ional Health - Occupational Stress Questionnaire Answer Date Recorded Do you feel stress - tense, restless, nervous, or anxious, or unable to sleep at night because your mind is troubled all the time - these days? Not at all 02/09/2024 Exercise Vital Sign Answer Date Recorde d On average, how many days pe r week do you engage in moderate to strenuous exercise (like a brisk walk)? 2 days 02/09/2024 On average, how many minutes do you engage in exercise at this level? 150+ min 02/09/2024 Hunger Vital Sign Answer Date Recorded Within the past 12 months, y ou worried that your food would run out before you got the money to buy more. Never true 02/09/20 24 Within the past 12 months, t he food you bought just didn't last and you didn't have money to get more. Never true 02/09/2024 PRAPARE - Transportation Answer Date Re corded In the past 12 months, has l ack of transportation kept you from medical appointments or from getting medications? No 01/2024 In the past 12 months, has l ack of transportation kept you from meetings, work, or from getting things needed for daily living? No 02/09/2024 Housing Stability Vital Sign Answer Meir e Recorded In the last 12 months, was t here a time when you were not able to pay the mortgage or rent on time? No 02/09/2024 In the past 12 months, how m any times have you moved where you were living? 0 02/09/2024 At any time in the past 12 m [facility], were you homeless or living in a intermediate (including now)? No 02/09/2024 Sex and Gender Information Value Date Recorded Sex Assigned at Not on file Legal Sex Male 1:49 AM CDT Gender Identity Not on file Sexual Orientation Not on file Occupation Industry Job Start Date Job End Date DQ Not on file Not on file Not on file Last Filed Vital Signs Vital Sign Reading Time Taken Comments Blood Pressure 120/80 03/20/2024 9:16 AM FINE DINING SERVER Pulse 83 03/20/2024 9:16 AM FINE DINING SERVER Temperature 36.5 ??C (97.7 ??F) 02/10/2024 10:36 AM C DT Respiratory Rate 16 02/10/2024 10:39 AM CDT Oxygen Saturation 98% 03/20/2024 9:16 AM FINE DINING SERVER Inhaled Oxygen Concentration - - Weight 75.8 kg (167 lb) 03/20/2024 9:16 AM FINE DINING SERVER Height 172.7 cm (5' 8 ) 03/20/2024 9:16 AM FINE DINING SERVER Body Mass Index 25.39 03/20/2024 9:16 AM FINE DINING SERVER Plan of Treatment Upcoming Encounters Date Type Department Care Team (Late st Contact Info) Description 03/06/2025 1:00 PM FINE DINING SERVER Appointment [facility] [address] [place] [address] Jose Camacho MD Three [facility]. [address] [place], [place] [address] 03/26/2025 9:30 AM FINE DINING SERVER [facility] [address] [place] [address] Barbara Rosario, DUONG [address] [facility] [address] [place], [place] [id number] Finn Blevins MD Three [facility] [address] [place], [place] [id number] Health Maintenance Due Date Last Done Comments Pneumococcal Vaccine: 65+ Years (1 of 2 - PCV) 1948 DTaP, Tdap and Td Vaccines ( 1 - Tdap) 1961 Zoster Vaccines (1 of 2) 1992 Annual Medicare Wellness Visit 2007 RSV Immunization or 60+ Years (1 - 1-dose 75+ series) 2017 COVID-19 Vaccine (3 - 2023-2 5 season) 2024 06/28/2020, 06/05/2020 Influenza Adult (#1) 2024 02/06/2020 Meningococcal B Vaccine Aged Out No l onger eligible based on patient's age to complete this topic Meningococcal Vaccine Aged Out No billie topher eligible based on patient's age to complete this topic RSV Immunizations Under 20 Months Aged Out No longer eligible b ased on patient's age to complete this topic Procedures Procedure Name Priority Date/Time Associated Diagnosis Comments HOME SLEEP STUDY - WATCHPAT Routine 04/05/2024 11:00 AM FINE DINING SERVER Coronary artery disease involving huslia coronary artery of huslia heart without angina pectoris Snoring Daytime sleepiness LIPID PANEL Routine 03/31/2024 9:02 AM FINE DINING SERVER Mixed hyperlipidemia from Last 3 Months Results * Home Sleep Study - WatchPat (52910/G0400) (04/05/2024 11:00 AM FINE DINING SERVER) Narrative [facility] - 04/05/2024 11:00 AM FINE DINING SERVER Luisito Thomas MD ? 04/14/2024 10:04 AM Patient Information First Name: DEMARCO Last Name: MARGOT ID: [id number] Date: 1940 Age: 83 Gender: Male BMI: 25.1 (W=165 lb, H=5' 8 Sleep Study Information Study Date:04/06/2024 Referring Physician Information First Name: Last Name: BARBARA ROSARIO 5.3.82.5 / 4.2.1210 / 82 S/H/A Version: WATCHPAT HOME SLEEP APNEA TEST REPORT SUMMARY DATA SLEEP STUDY/ARCHITECTURE: This patient was studied using a WatchPAT home sleep study device, The evaluation was initiated on 04/06/2024 at 11:51:07 PM and was stopped at 6:43:42 AM. The total recording time was 6 hrs, 52 min with total sleep evaluation of 5 hrs, 55 min. ANALYSIS: (pAHI = PAT Apnea-Hypopnea Index, pRDI = PAT Respiratory Disturbance Index) Total pAHI 4%: ??8.3 ?? Total pRDI: ??12.4 Average Sleep Oxygen Saturation: ?? 94 Minimum Sleep Oxygen Saturation: ??87 Mean Heart Rate During Sleep: ??66 Afib Total Duration: ??Not detected Afib Longest Duration: ??Not detected (Afib events < 60 seconds may be artifact) Premature Beats per Minute: ??0.2 Rev. ?? Printed on:04/14/2024 04/06/2024,[id number],1940,Male *The automatic analysis events or stages have been edited. 539 Page 1 of 2 Sleep Study Report SUMMARY/DIAGNOSIS 1.) Mild Obstructive Sleep Apnea. RECOMMENDATIONS [place] treatment option should be discussed with the patient and a plan for treatment should be made. Potential health consequences and medical importance of treatment should also be discussed with the patient. This patient should maintain good sleep hygiene techniques, maintain a consistent sleep/wake schedule with adequate hours of sleep, and avoid hazardous activities when sleepy. The patient should be cautioned about factors that may potentially exacerbate snoring and other sleep-related issues, such as MERCHANDISE PLANNER depressants, especially at bedtime. Raw data reviewed and electronically signed by: Luisito Thomas ??on 04/14/2024 10:02:30 AM at ??4:02:35PM, [facility] us Barbara Rosario [facility] ORDERABLES Final Result [facility] [address] [place] [address], * LIPID PANEL (03/31/2024 9:02 AM [facility]) CHOLESTEROL 77 <200.0 MG/DL 03/31/2024 9:25 AM [facility] TRIGLYCERIDES 76 <150 MG/DL 03/31/2024 9:25 AM [facility] HDL 50 >40.0 MG/DL 03/31/2024 9:25 AM [facility] LDL (CALCULATED) 12 <100 MG/DL 03/31/20 9:25 AM [facility] NON HDL CHOLESTEROL 27 <130 MG/DL 03/31 9:25 AM [facility] CHOL/HDL RATIO 1.5 0.0 - 4.5 03/31/2024 9:25 AM [facility] VLDL CALCULATION 15 5 - 55 MG/DL 03/31/2024 9:25 AM [facility] LIPID INTERPRETATION 03/31/2024 9:25 AM [facility] Comment: [facility] REPORT RECOMMENDATIONS: ?ADULT ?CHILD ??LOW RISK: ?CHOLESTEROL ? <200 ? <170 ?TRIGLYCERIDE ?<150 ?--- ?HDL ? >=60 ?--- ?LDL ? <100 ? <110 ??BORDERLINE: ?CHOLESTEROL ? 200-239 ?? 170-199 ?TRIGLYCERIDE ?150-199 ? --- ?HDL ?40-59 ?--- ?LDL ? 100-159 ?? 110-129 ??HIGH RISK: ?CHOLESTEROL ? >=240 ?>=200 ?TRIGLYCERIDE ?>=200 ? --- ?HDL ?<40 ?--- ?LDL ? >=160 ?>=130 03/31/2024 9:02 AM FINE DINING SERVER us Finn Blevins MD LABORATORY Final Resul t [facility] () [facility] [address] [place] [address], [place] [phone] from Last 3 Months Insurance [employer] Advance Directives * Full Code (Latest Code Status on File) Date Activated Date Inactivated Comments 02/10/2024 2:38 AM 02/10/2024 3:49 PM Care Teams Train Examiner Relationship Specialty Start Date End Date Hortensia Alarcon, [facility] [address] [place] [id number] PCP - General Nurse Practitioner Family 02/09/24 Finn Blevins MD [facility]. [address] [place] [address] [employer] CARDIOVASCULAR DISEASE 10/02/15
--- OUTSIDE RECORDS SUMMARY | 2024-05-31 02:11 | XMS_ITS | Referral Summary ---
Author Organization [facility] Address [address] [place] [address] Care Team Providers Care Cut And Print Machine Operator Name Role Phone Sukhwinder Yuan MD Primary Care Provider [phone] Source Comments [facility],non-owned Affiliates and Associated Physician Practices is amultiple site organization consisting of ambulatory clinics and hospital sitesin [place], [place], [place] and [place]. This disclosure is being madepursuant to the Care Everywhere program and may not contain all information available regarding this patient. Last updated 18.[facility] [id number] Social History Tobacco Use Types Packs/Day Years Used Date Smoking Tobacco: Never Assessed Sex and Gender Information Value Date Recorded Sex Assigned at Not on file Gender Identity Not on file Sexual Orientation Not on file Plan of Treatment Not on file Care Teams Cut And Print Machine Operator Relationship Specialty Start Date End Date Sukhwinder Yuan MD [address] [place] [address] PCP - General 01/01/21
--- OUTSIDE RECORDS SUMMARY | 2024-05-31 02:11 | XMS_ITS | Patient Health Summary ---
Author Organization [facility] Address [address] [place] [address] Care Team Providers Care Composite Boat Builder Name Role Phone Sukhwinder Yuan MD Primary Care Provider [phone] Note from [facility],non-owned Affiliates and Associated Physician Practices is amultiple site organization consisting of ambulatory clinics and hospital sitesin [place], [place], [place] and [place]. This disclosure is being madepursuant to the Care Everywhere program and may not contain all information available regarding this patient. Last updated 18.[facility] Social History Tobacco Use Types Packs/Day Years Used Date Smoking Tobacco: Never Assessed Sex and Gender Information Value Date Recorded Sex Assigned at Not on file Gender Identity Not on file Sexual Orientation Not on file Procedures * DERMATOPATHOLOGY(Performed 11/18/2022) * DERMATOPATHOLOGY(Performed 10/08/2022) Results * DERMATOPATHOLOGY (11/18/2022 1:50 PM CDT) Only the most recent of2 resultswithin the time period is included. Case Report Dermatopathology Report ? Case: [id number] ? Authorizing Provider: ??Kamille Billings, ?? Collected: ? 11/18/2022 01:50 PM ? Ordering Location: ? [facility] ? Received: ?11/20/2022 07:49 AM ? Pathologist: ? Shanti Baez MD ? Specimen: ?Skin, right forearm ? 3 1:15 PM CDT DERMATOPATHOLOGY LABORATORY Final Diagnosis Specimen A. 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 The specimen consists of a non-oriented ellipse of skin measuring [id number] mm. The epidermal surface is unremarkable. The margin is inked green. The 12 o'clock and 6 o'clock tips are submitted in cassette 1. The remainder of the ellipse is serially sectioned and submitted in cassette 2-3. Jar 0. 3 1:15 PM CDT DERMATOPATHOLOGY LABORATORY Microscopic Description Specimen A. SKIN, right forearm: The epidermis shows parakeratosis, full thickness disorderly maturation of keratinocytes, mitoses at different levels, and dyskeratotic cells. This lesion is not present at the margin of the specimen. There are fibroblasts and collagen bundles oriented parallel to the skin surface with elongated blood vessels, some of which are oriented perpendicular to the skin surface. 3 1:15 PM T DERMATOPATHOLOGY LABORATORY Disclaimer An external and internal positive and negative controls are appropriate for the histochemical, immunohistochemical and immunofluorescence stain(s) in this case (if any), except where stated explicitly. The performance characteristics of the stain(s) cited in this report were developed and its performance characteristic determined by the Dermatopathology Laboratory at [facility], directed by Dr. Mohan Hitchcock. These tests need not be, and therefore are not, approved by the [place] Food and Drug Administration. The tests are used for clinical purposes. Billing Codes Specimen Charges Stain Charges 80299 1 3 1:15 PM CDT DERMATOPATHOLOGY LABORATORY Embedded Images 3 1:15 PM CDT DERMATOPATHOLOGY LABORATORY Pathology/Cytolo gy TISSUE SPECIMEN FROM SKIN / Unknown 11/18/2022 1:50 PM CDT 11/20/2022 7:49 AM CDT Kamille Billings DO LAB - PATHOLOGY/C YTOLOGY ORDERABLES DERMATOPATHOLOGY LABORATORY [facility] - Department of Dermatology [facility] Specialized Medicine [address] [place] [address], [address] [phone] Care Teams Composite Boat Builder Relationship Specialty Start Date End Date Sukhwinder Yuan MD [address] [place] [address] PCP - General 01/01/21
--- OUTSIDE RECORDS SUMMARY | 2024-05-31 02:11 | XMS_ITS | Encounter Summary ---
Author Organization [facility] Address [address] [place] [address]. [place] [address] [place] [address] Care Team Providers Care Asset Administrator Name Role Phone Sukhwinder Yuan MD Primary Care Provider [phone] Finn Blevins MD Unavailable [phone] Ghulam Ford MD Primary Care Provider [phone] Hortensia Alarcon [facility] Primary Care Provider + Encounter Details Date Type Department Care Team (Late st Contact Info) Description 12/19/2019 Abstract [facility] at [address] [address] Destinee Medina MA Social History Tobacco Use [...] file Not on file Not on file COVID-19 Exposure Response Date Recorded In the last month, have you been in contact with someone who was confirmed or suspected to have Coronavirus / COVID-19? Unable to assess 12/18/2019 10:31 AM CDT documented as of this encounter Plan of Treatment Upcoming Encounters Date Type Department Care Team (Late st Contact Info) Description 03/06/2025 1:00 PM PHARMACEUTICAL ANALYST Appointment [facility] [address] [place] [address] Jose Camacho MD Three [facility]. [address] [place], [place] [address] 03/26/2025 9:30 AM PHARMACEUTICAL ANALYST Office Visit [facility] [address] [place] [phone] Barbara Rosario FNP 3 [facility] [address] [place], [place] [address] Finn Blevins MD Three [facility]. [address] [place], [place] [address] documented as of this encounter Procedures Procedure Name Priority Date/Time Associated Diagnosis Comments CBC (OUTSIDE LAB) Routine 02/12/2021 PROSTATE SPECIFIC ANTIGEN,TOTAL Routine 02/12/2021 COMPREHENSIVE METABOLIC PANEL Routine 02/12/2021 LIPID PANEL Routine 02/12/2021 THYROID STIM HORMONE TSH Routine 02/12/2021 URIC ACID BLOOD Routine 02/12/2021 CBC (OUTSIDE LAB) Routine 12/12/2019 PROSTATE SPECIFIC ANTIGEN,TOTAL Routine 12/12/2019 COMPREHENSIVE METABOLIC PANEL Routine 12/12/2019 LIPID PANEL Routine 12/12/2019 THYROID STIM HORMONE TSH Routine 12/12/2019 documented in this encounter Results * PROSTATE SPECIFIC ANTIGEN,TOTAL (02/12/2021) PSA 0.52 02/12/2021 [facility] Final Result * CBC (OUTSIDE LAB) (02/12/2021) WBC 3.3 HGB 10.8 HCT 32.4 PLT 146 02/12/2021 [facility] LAB-OUTSIDE/ABSTRACTED Final Result * THYROID STIM HORMONE, TSH (02/12/2021) TSH 0.16 0.40 - 4.5 02/12/2021 [facility] Final Result * URIC ACID BLOOD (02/12/2021) URIC ACID 1.8 02/12/2021 [facility] Final Result * COMPREHENSIVE METABOLIC PANEL (02/12/2021) SODIUM S/P/B 140 POTASSIUM S/P/B 4.0 CO2 29 CHLORIDE S/P/B 107 GLUCOSE 100 mg/dL CALCIUM S/P/B 9.0 BUN 19 CREATININE S/P/B 1.04 0.7 - 1.3 EGFR AFR. AMER. 79 <=90 EGFR NON-AFR. AMER. 68 <=90 ALKALINE PHOSPHATASE S/P/B 76 ALT 13 AST 20 BILIRUBIN TOTAL S/P/B 0.5 ALBUMIN S/P/B 3.7 3.5 - 5.0 TOTAL PROTEIN S/P/B 6.9 GLOBULIN 3.2 02/12/2021 [facility] Final Result * LIPID PANEL (02/12/2021) Pathologist [facility] CHOLESTEROL 89 HDL 35 TRIGLYCERIDES 92 NON HDL CHOLESTEROL 54 LDL (CALCULATED) 36 02/12/2021 us [facility] Final Result * PROSTATE SPECIFIC ANTIGEN,TOTAL (12/12/2019) Pathologist [facility] PSA 0.6 12/12/2019 Doc [facility] Edited Resul t - Final * CBC (OUTSIDE LAB) (12/12/2019) Pathologist [facility] WBC 3.8 HGB 12.2 HCT 35.9 PLT 113 12/12/2019 [facility] LAB-OUTSIDE/ABSTRACTED Final Result * THYROID STIM HORMONE, TSH (12/12/2019) Pathologist [facility] TSH 0.41 0.40 - 4.50 12/12/2019 us Doc [facility] Final Result * COMPREHENSIVE METABOLIC PANEL (12/12/2019) Pathologist [facility] SODIUM S/P/B 139 POTASSIUM S/P/B 4.2 CO2 28 CHLORIDE S/P/B 105 GLUCOSE 104 mg/dL CALCIUM S/P/B 9.2 BUN 23 CREATININE S/P/B 0.99 0.7 - 1.3 EGFR AFR. AMER. 85 <=90 EGFR NON-AFR. AMER. 73 <=90 ALKALINE PHOSPHATASE S/P/B 70 ALT 17 AST 23 BILIRUBIN TOTAL S/P/B 0.7 ALBUMIN S/P/B 4.1 3.5 - 5.0 TOTAL PROTEIN S/P/B 7.0 GLOBULIN 2.9 12/12/2019 us Doc [facility] Final Result * LIPID PANEL (12/12/2019) CHOLESTEROL 90 <200 HDL 46 > or = 40 TRIGLYCERIDES 71 <150 NON HDL CHOLESTEROL 44 <130 LDL (CALCULATED) 29 <100 12/12/2019 us Doc [facility] Final Result documented in this encounter Visit Diagnoses Not on filedocumented in this encounter Care Teams Asset Administrator Relationship Specialty Start Date End Date Sukhwinder Yuan MD PCP - General INTERNAL MEDICINE 10/02/15 03/02/22 Ghulam Ford MD [address] [place] [address] PCP - General FAMILY PRACTICE 03/03/22 02/08/24 Hortensia Alarcon, [facility] [address] [place] [address] PCP - General Nurse Practitioner Family 02/09/24 Finn Blevins MD [facility]. [address] [address] [employer] T[employer] CARDIOVASCULAR DISEASE 10/02/15 documented as of this encounter
--- OUTSIDE RECORDS SUMMARY | 2024-05-31 02:11 | XMS_ITS | Encounter Summary ---
Author Organization [facility] Address [address] [facility] [place] [address] Care Team Providers Care Oil Speculator Name Role Phone Sukhwinder Yuan MD Primary Care Provider [phone] Encounter Details Date Type Department Care Team (Late st Contact Info) Description 11/18/2022 Lab Requisition [facility] [address] [facility] [place] [address] Kamille Billings DO [address] [facility] [address] [place] [address] Social History Tobacco Use Types Packs/Day Years Used Date Smoking Tobacco: Never Assessed Sex and Gender Information Value Date Recorded Sex Assigned at Not on file Gender Identity Not on file Sexual Orientation Not on file documented as of this encounter Plan of Treatment Not on file documented as of this encounter Procedures Procedure Name Priority Date/Time Associated Diagnosis Comments DERMATOPATHOLOGY Routine 11/18/2022 1:50 PM CDT documented in this encounter Results * DERMATOPATHOLOGY (11/18/2022 1:50 PM CDT) Case Report Dermatopathology Report ? Case: [id number] ? Authorizing Provider: ??Kamille Billings, DO ?? Collected: ? 11/18/2022 01:50 PM ? Ordering Location: ? [facility] ? Received: ?11/20/2022 07:49 AM ? Pathologist: ? Shanti Baez MD ? Specimen: ?Skin, right forearm ? 3 1:15 PM T DERMATOPATHOLOGY LABORATORY Final Diagnosis Specimen A. 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 The specimen consists of a non-oriented ellipse of skin measuring 20y17x6 mm. The epidermal surface is unremarkable. The margin is inked green. The 12 o'clock and 6 o'clock tips are submitted in cassette 1. The remainder of the ellipse is serially sectioned and submitted in cassette 2-3. Jar 0. 3 1:15 PM T DERMATOPATHOLOGY LABORATORY Microscopic Description Specimen [...] characteristic determined by the Dermatopathology Laboratory at [facility], directed by Dr. Mohan Hitchcock. These tests need not be, and therefore are not, approved by the [place] Food and Drug Administration. The tests are used for clinical purposes. Billing Codes Specimen Charges Stain Charges 95144 1 3 1:15 PM CDT DERMATOPATHOLOGY LABORATORY Embedded Images 3 1:15 PM CDT DERMATOPATHOLOGY LABORATORY Pathology/Cytolo gy TISSUE SPECIMEN FROM SKIN / Unknown 11/18/2022 1:50 PM CDT 11/20/2022 7:49 AM CDT Kamille Billings DO LAB - PATHOLOGY/C YTOLOGY ORDERABLES DERMATOPATHOLOGY LABORATORY [facility] - Department of Dermatology [facility] Medicine [address] [place] [address], [address] [phone] documented in this encounter Visit Diagnoses Not on filedocumented in this encounter Care Teams Oil Speculator Relationship Specialty Start Date End Date Sukhwinder Yuan MD [address] [place] [address] PCP - General 01/01/21 documented as of this encounter
--- NOTE | 2024-05-31 07:09 | WPDHPUPDATE1 ---
History and Physical Update Update Date/Time: 05/31/24 07:09 History and Physical has been reviewed, including an updated exam of the patient. There are NO changes in the patient's condition. Risks, benefits, and alternatives have been discussed and questions answered. Patient agrees to proceed with procedure.
--- NOTE | 2024-05-31 09:05 | WPDANESEPPF ---
Anes - Initial Pre Proc Eval Procedure: Operation Date: 05/31/24 10:30 Proposed Procedures p Right Total Knee Arthroplasty - Pablo Jaime MD Date/Time: 05/31/24 09:05 Surgeon: Pablo Jaime MD Pre Op Diagnosis: Rt Knee DJD Patient Data Age: 83 Gender: M Height: 1.73 m Weight: 73 kg Last Vital Signs Temp 36.7 C 05/16/24 10:18 Pulse 62 05/16/24 10:18 Resp 16 05/16/24 10:18 BP 131/74 05/16/24 10:18 Pulse Ox 98 05/16/24 10:18 O2 Del Method Room Air 05/16/24 10:18 Allergies Allergy/AdvReac Type Severity Reaction Status Date / Time No Known Allergies Allergy Verified 05/22/24 13:33 Home Medications ?Medication ?Instructions ?Recorded ?Confirmed ?Type aspirin 81 mg tablet,delayed 81 mg PO DAILY 11/06/20 05/31/24 History release (Adult Aspirin Regimen) multivit with minerals-iron 18 1 tablet PO DAILY 12/11/20 05/31/24 History mg-folic ac 400 mcg-vit K 25 mcg tablet (Adults Multivitamin) sildenafil 100 mg tablet 100 mg PO DAILY PRN sexual 02/09/23 05/22/24 Rx activity #30 tabs atorvastatin 80 mg tablet 80 mg PO QHS 02/22/24 05/31/24 History clopidogrel 75 mg tablet 75 mg PO DAILY 02/22/24 05/31/24 History allopurinol 300 mg tablet 300 mg PO DAILY #90 tabs 04/20/24 05/31/24 Rx tamsulosin 0.4 mg capsule 0.4 mg PO DAILY #90 caps 05/11/24 05/31/24 Rx levothyroxine 100 mcg tablet 100 mcg PO DAILY #90 tabs 05/12/24 05/31/24 Rx chlorhexidine gluconate 4 % 1 applic topical DAILY #237 mL 05/15/24 05/31/24 Rx topical liquid (Hibiclens) PREVAGEN 1 cap PO DAILY 05/16/24 05/31/24 History aspirin 81 mg tablet,delayed 81 mg PO DAILY 05/16/24 05/31/24 History release (Adult Aspirin Regimen) metoprolol succinate 25 mg 25 mg PO DAILY #90 tabs 05/25/24 05/31/24 Rx tablet,extended release 24 hr Patient hx anesthesia problems: none Family hx anesthesia problems: none Results Review: All pre-operative results and documents have been reviewed as part of the pre-operative evaluation. [facility] Past Medical History Medical History Effusion of knee joint Right knee DJD Right knee pain Osteoarthritis Hypothyroidism Hyperlipidemia HTN (hypertension) CAD (coronary artery disease) Hearing loss Wears glasses Surgical History Surgical History History of total knee arthroplasty History of quadruple bypass Family History Family History Father Cerebrovascular accident Mother Cancer Social History Social History Social History: 02/19/24 very confident with medical forms. Smoking status: Never smoker Alcohol intake: current Alcohol use details: 2 per month Substance use: never Do You Feel Safe in your Home?: Yes Lack of Transportation: No Lack of Food: Never True Current Housing: I Have Housing Concerned About Future Housing: No Difficulty Paying Gas/Electric Bills: No Difficulty Paying for Meds: No Currently Unemployed: No Education: Bachelor's Degree Difficulty w/ Childcare or Family Care: No Living arrangements: with family Additional living arrangements comments: Occupation/Education: retired Spiritual care concerns: No Anes - Eval Final PreProcedure Day of Procedure 05/31/24 09:05 Patient weight: normal Heart: regular rate and rhythm Lungs: clear to auscultation Airway: Mallampati scale class III Neurological: alert and oriented Last oral intake: >/= 8 hours ASA classification: III Emergent: no Anesthetic plan: proceed Anesthesia type and monitoring: general LMA and standard monitoring Results Review: All pre-operative results and documents have been reviewed as part of the pre-operative evaluation. Informed Consent: The patient's anesthetic plan and its attendant risks and benefits were discussed with the patient/family/POA. Questions were solicited and answers provided to the satisfaction of the patient/family/POA.
--- NOTE | 2024-05-31 09:08 | WPDANESPNB ---
Anes - Peripheral Nerve Block Date/Time: 05/31/24 09:08 I have discussed with the patient/family/POA the placement of a peripheral nerve block for post-operative pain management, including associated risks, benefits, complications, and side effects. Alternative methods of post-operative analgesia were detailed. Questions were solicited and answers provided to the satisfaction of the patient/family/POA. Time-Out: A pre-procedural Time-Out was completed immediately before starting the procedure and confirmed: Patient Identification, Site, Procedure, Patient Position and the Availability of Requisite Equipment. Clinical Indications: Acute post-operative pain management requested by the operative surgeon. Nerve Block Insertion Note Anes-nerve block: adductor canal right Patient position: supine Skin prep: chlorhexidine Needle: 22 gauge, stimulating, insulated echogenic needle. Needle length: 80 mm Technique: ultrasound Injectate: bupivacaine 0.5% with epi 5 mcg/ml (30cc - no epi) Observations: tolerated well Complications: none Procedure start time:: 104 Procedure end time:: 1044
[2024-05-31] MEDS: LACTATED RINGERS 1,000 ML 30 ML IV CONT (09:20)
[2024-05-31] MEDS: ACETAMINOPHEN 500 MG TABLET 1000 MG PO (09:27)
[2024-05-31] MEDS: TRANEXAMIC ACID 1,000MG/ISO100 1,000 MG/100 ML BAG 200 MG IVPB (10:44)
--- NOTE | 2024-05-31 10:55 | SUR.PREOP ---
1053-Dr. Jaime aware of closed skin irritation posterior right knee w/itchiness and redness but no open areas. States okay to proceed to with surgery.
[2024-05-31] MEDS: ceFAZolin 2 GM/D5W 50 ML 2 GM/50 ML BAG IVPB ×2 (10:57→19:05)
[2024-05-31] MEDS: SODIUM CHLORIDE 0.9% IV 37.7 ML, MORPHINE SULFATE INJ (*CRX) 2 MG, ROPivacaine HCL 1% 2... INFILTRATE (11:33)
[2024-05-31] MEDS: GENTAMICIN BONE CEMENT REFOBACIN 1 EACH TOPICAL (11:54)
[2024-05-31] MEDS: TRANEXAMIC ACID 1,000 MG/10 ML AMPUL 1000 MG IV PUSH (12:28)
--- NOTE | 2024-05-31 12:58 | W.PM.PROC2 ---
Procedure Note - Detailed Date of Procedure 05/31/24 Pre-op Diagnosis Rt Knee DJD Post-op Diagnosis Same Procedure Performed R TKA Surgeon Pablo Jaime MD Anesthesia General Description of Procedure THE RIGHT KNEE WAS PREPPED AND DRAPED IN THE STERILE FASHION. THERE WAS A 10 DEGREE FLEXION CONTRACTURE. A MIDLINE SKIN INCISION WAS MADE. A MEDIAL PARAPATELLAR ARTHROTOMY WAS MADE. THE PATELLA WAS EVERTED. THERE WAS TRICOMPARTMENT DJD. THERE WAS MINIMAL PATELLA DJD. AN INTRAMEDULLARY JAVIER WAS PLACED IN THE FEMUR. A DISTAL FEMORAL CUT WAS MADE IN 5 DEGREES OF VALGUS REMOVING APPROXIMATELY 9 MM OF BONE FROM THE DISTAL FEMUR. THE FEMUR WAS SIZED TO 67.5. A 67.5 FEMORAL CUTTING BLOCK WAS PLACED IN 3 DEGREES OF EXTERNAL ROTATION AND IN ALIGNMENT WITH YANETH'S LINE AND THE TRANSEPICONDYLAR AXIS. ANTERIOR POSTERIOR AND CHAMFER CUTS WERE MADE. THE CUTS WERE EXCELLENT. NEXT AN INTRAMEDULLARY CUTTING GUIDE WAS PLACED IN THE TIBIA. A TRANS TIBIAL CUT WAS MADE ALONG THE LONG AXIS OF THE TIBIA. APPROXIMATELY 10 MM OF BONE WAS REMOVED FROM THE HIGH SIDE OF THE TIBIA. THE TIBIA WAS THEN PLANED TO A SMOOTH SURFACE. POSTERIOR FEMORAL OSTEOPHYTES WERE REMOVED FROM THE FEMORAL CONDYLES. A 79 TIBIAL TRIAL WAS PLACED IN ALIGNMENT WITH THE 1/3 MEDIAL ASPECT OF THE TIBIAL TUBERCLE. THEN A 67.5 FEMORAL TRIAL COMPONENT WAS PLACED. BOTH HAD EXCELLENT FITS. EVENTUALLY A 10 MM CR POLYETHYLENE TRIAL COMPONENT WAS PLACED. THE KNEE WAS TAKEN THROUGH A RANGE OF MOTION. THE KNEE CAME OUT TO FULL EXTENSION. THERE WAS NO ABNORMAL TILT TO THE PATELLA. THERE WAS GOOD A/P AND VARUS/VALGUS STABILITY. THERE WAS NO EXCESSIVE ROLL BACK WITH FLEXION. THE TRIAL COMPONENTS WERE REMOVED. THEN A 67.5 FEMORAL COMPONENT AND 79 TIBIAL COMPONENT WITH A 10 CR POLYETHYLENE COMPONENT WERE CEMENTED INTO PLACE. ONCE THE CEMENT WAS HARD THE KNEE WAS TAKEN THROUGH A ROM AGAIN AND FOUND TO BE STABLE WITH NO PATELLA TILT NO EXCESSIVE ROLL BACK WITH FLEXION AND GOOD STABILITY WITH COMPLETE AND FULL EXTENSION. THE KNEE WAS IRRIGATED WITH STERILE BETADINE AND WATER FOR ABOUT 3 MINUTES. THE BLEEDERS WERE CAUTERIZED. THE ARTHROTOMY WAS REPAIRED WITH NUMBER 1 VICRYL. THE SUB CUTANEOUS LAYER WITH 2-0 VICRYL AND THE SKIN WITH JESSEE. THE WOUND WAS WASHED AND A STERILE DRESSING WAS APPLIED. PATIENT WAS EXTUBATED. Estimated Blood Loss -150.0 Pathology None sent Complications No immediate complications Condition Stable Disposition PACU
[2024-05-31] MEDS: fentaNYL CITRATE INJ (*CRX) 100 MCG/2 ML VIAL 25 MCG IV PUSH ×2 (13:29→13:51)
[2024-05-31] MEDS: diazePAM (*CRX) 5 MG TABLET PO (16:09)
[2024-05-31] MEDS: SENNA/DOCUSATE SODIUM TABLET 2 TAB PO (16:09)
[2024-05-31] MEDS: oxyCODONE/ACETAMINOPHEN (*CRX) 10-325 MG TABLET 1 TAB PO (16:09)
[2024-05-31] MEDS: CELECOXIB 200 MG CAPSULE PO (16:09)
[2024-05-31] MEDS: FAMOTIDINE 20 MG TABLET PO (20:52)
[2024-05-31] MEDS: ATORVASTATIN 40 MG TABLET 80 MG PO (20:52)
[2024-05-31] MEDS: ASPIRIN 325 MG ENTERIC TABLET PO (20:53)
[2024-06-01] MEDS: ceFAZolin 2 GM/D5W 50 ML 2 GM/50 ML BAG IVPB ×2 (03:20→10:54)
[2024-06-01 04:00] VITALS: BP 112/65; PULSE 53; RESP 16; TEMP 36.3; O2SAT 97
[2024-06-01] MEDS: LEVOTHYROXINE SODIUM 100 MCG TABLET PO (05:34)
[2024-06-01 06:32] LABS: Basophils Percent Auto 0.1 % (0.2-1.2); Hematocrit 26.5 % (42.0-52.0); Hemoglobin 8.9 g/dL (14.0-18.0); Immature Granulocyte Absolute 0.05 K/mm3 (0.00-0.031); Immature Granulocyte Percent A 0.6 % (0-0.5); Lymphocytes Absolute Auto 0.61 K/mm3 (0.9-3.2); Lymphocytes Percent Auto 6.7 % (18.3-44.2); Mean Corpuscular HGB Conc 33.6 g/dl (32-36); Mean Corpuscular Hemoglobin 37.9 pg (26-34); Mean Corpuscular Volume 112.8 fl (80-100); Mean Platelet Volume 10.2 fl (7.4-10.4); Monocytes Absolute Auto 0.7 K/mm3 (0.1-0.6); Monocytes Percent Auto 7.8 % (2.6-8.5); Neutrophils Absolute Auto 7.7 K/mm3 (1.3-6.7); Neutrophils Percent Auto 84.8 % (45.5-73.1); Platelet Count Result 103 k/mm3 (150-375); Red Blood Count 2.35 M/mm3 (4.6-6.20); Red Cell Distribution Width 14.5 % (11.5-14.5); White Blood Count 9.1 K/mm3 (4.5-10.0)
[2024-06-01 06:41] LABS: Anion Gap 8 mmol/L (4-12); Blood Urea Nitrogen 34 mg/dL (9-20); Calcium 8.9 mg/dL (8.4-10.2); Carbon Dioxide 26 mmol/L (22-30); Chloride 103 mmol/L (98-107); Estimated CRCL calculation 48 ml/min; Estimated Glomerular Filt Rate > 60; Glucose 123 mg/dL (65-110); Potassium 4.4 mmol/L (3.4-5.0); Sodium 137 mmol/L (137-145)
[2024-06-01 07:00] LABS: Macrocytosis 2+ (NORMAL); Platelet Estimate Decreased (Adequate)
[2024-06-01 07:01] LABS: Ovalocytes 1+
[2024-06-01 08:00] VITALS: BP 140/70; PULSE 67; RESP 20; TEMP 36.6; O2SAT 100
[2024-06-01] MEDS: ASPIRIN 325 MG ENTERIC TABLET PO (08:07)
[2024-06-01] MEDS: SENNA/DOCUSATE SODIUM TABLET 2 TAB PO (08:07)
[2024-06-01 08:08] VITALS: PULSE 60
[2024-06-01] MEDS: FAMOTIDINE 20 MG TABLET PO (08:08)
[2024-06-01] MEDS: polyethylene glycoL 3350 17 GM POWD.PACK PO (08:08)
[2024-06-01] MEDS: METOPROLOL SUCCINATE EXT REL 25 MG TABCR PO (08:08)
[2024-06-01] MEDS: CELECOXIB 200 MG CAPSULE PO (08:08)
[2024-06-01] MEDS: TAMSULOSIN HCL 0.4 MG CAPSULE PO (08:08)
--- OUTSIDE RECORDS SUMMARY | 2024-06-01 09:21 | XMS_ITS | Clinical Summary ---
Author Organization [facility] Address [address] [place] [address] Care Team Providers Care Smudger Name Role Phone Sukhwinder Yuan MD Primary Care Provider [phone] [facility],non-owned Affiliates and Associated Physician Practices is amultiple site organization consisting of ambulatory clinics and hospital sitesin [place], [place], [place] and [place]. This disclosure is being madepursuant to the Care Everywhere program and may not contain all information available regarding this patient. Last updated 18.[facility] [employer] Social History Tobacco Use Types Packs/Day Years [...] age to complete this topic Care Teams Smudger Relationship Specialty Start Date End Date Sukhwinder Yuan MD [facility] [place] [address] PCP - General 01/01/21
--- OUTSIDE RECORDS SUMMARY | 2024-06-01 09:21 | XMS_ITS | Encounter Summary ---
Author Organization [facility] Address [address] [place] [address] Care Team Providers Care Conveyor System Dispatcher Name Role Phone Sukwhinder Yuan MD Primary Care Provider [phone] Encounter Details Date Type Department Care Team (Late st Contact Info) Description 10/08/2022 Lab Requisition [facility] [address] [facility], [place] [address] Kamille Billings DO [address] [facility] 3 DEPT [place] [address] Social History Tobacco Use Types Packs/Day Years [...] CDT) Case Report Dermatopathology Report ? Case: [id number] ? Authorizing Provider: ??Kamille Billings, DO ?? [...] microscopic description and comment) 3 4:12 PM [facility] DERMATOPATHOLOGY LABORATORY Clinical History R/O: NMSC 3 4:12 PM T DERMATOPATHOLOGY LABORATORY Gross Description Specimen A: Received is one formalin filled container labeled with the patient's name and designated right forearm. The specimen consists of a shave biopsy measuring 0i2e5oz. Jar 0. 3 4:12 PM T DERMATOPATHOLOGY [...] characteristic determined by the Dermatopathology Laboratory at [facility], directed by Dr. Mohan Hitchcock. These tests need not be, and therefore are not, approved by the [place] Food and Drug Administration. The tests are used for clinical purposes. Billing Codes Specimen Charges Stain Charges 77494 1 3 4:12 PM CDT DERMATOPATHOLOGY LABORATORY Embedded Images 3 4:12 PM CDT DERMATOPATHOLOGY LABORATORY Pathology/Cytolo gy TISSUE SPECIMEN FROM SKIN / Unknown 10/08/2022 9:58 AM CDT 10/09/2022 8:04 AM CDT Kamille Billings DO LAB - PATHOLOGY/C YTOLOGY ORDERABLES DERMATOPATHOLOGY LABORATORY [facility] - Department of Dermatology [facility] Medicine [address] [place] [address], [address]rd Floor [address] [phone] documented in this encounter Visit Diagnoses Not on filedocumented in this encounter Care Teams Conveyor System Dispatcher Relationship Specialty Start Date End Date Sukhwinder Yuan MD [address] [place] [address] PCP - General 01/01/21 documented as of this encounter
--- OUTSIDE RECORDS SUMMARY | 2024-06-01 09:21 | XMS_ITS | Patient Health Summary ---
Author Organization [facility] Address [address] [facility] [place] [address] Care Team Providers Care Home Lighting Adviser Name Role Phone Sukhwinder Yuan MD Primary Care Provider [phone] Note from [facility],non-owned Affiliates and Associated Physician Practices is amultiple site organization consisting of ambulatory clinics and hospital sitesin [place], [place], [place] and [place]. This disclosure is being madepursuant to the Care Everywhere program and may not contain all information available regarding this patient. Last updated 18.[facility] Social History Tobacco Use Types Packs/Day Years [...] included. Case Report Dermatopathology Report ? Case: [id number] ? Authorizing Provider: ??Kamille Billings, ?? Collected: [...] MARGIN DERMAL SCAR (L90.5) 3 1:[address] [facility] DERMATOPATHOLOGY LABORATORY Clinical History R/O SCCIS, BX PROVEN 3 1:15 PM CDT DERMATOPATHOLOGY LABORATORY Gross Description Specimen A: Received is one formalin filled container labeled with the patient's name and designated right forearm. The specimen consists of a non-oriented ellipse of skin measuring [id number] mm. The epidermal surface is unremarkable. The [...] characteristic determined by the Dermatopathology Laboratory at [facility], directed by Dr. Mohan Hitchcock. These tests need not be, and therefore are not, approved by the [place] Food and Drug Administration. The tests are used for clinical purposes. Billing Codes Specimen Charges Stain Charges 74976 1 3 1:15 PM CDT DERMATOPATHOLOGY LABORATORY Embedded Images 3 1:15 PM CDT DERMATOPATHOLOGY LABORATORY Pathology/Cytolo gy TISSUE SPECIMEN FROM SKIN / Unknown 11/18/2022 1:50 PM CDT 11/20/2022 7:49 AM CDT Kamille Billings DO LAB - PATHOLOGY/C YTOLOGY ORDERABLES DERMATOPATHOLOGY LABORATORY [facility] - Department of Dermatology [facility] Medicine [address] [place] [address], [address] [phone] Care Teams Home Lighting Adviser Relationship Specialty Start Date End Date Sukhwinder Yuan MD [address] [place] [address] PCP - General 01/01/21
--- OUTSIDE RECORDS SUMMARY | 2024-06-01 09:21 | XMS_ITS | Referral Summary ---
Author Organization [facility] Address [address] [place] [address] Care Team Providers Care Cardiac Sonographer Name Role Phone Sukhwinder Yuan MD Primary Care Provider [phone] Source Comments [facility],non-owned Affiliates and Associated Physician Practices is amultiple site organization consisting of ambulatory clinics and hospital sitesin [place], [place], [place] and [place]. This disclosure is being madepursuant to the Care Everywhere program and may not contain all information available regarding this patient. Last updated 18.[facility] FitnessManager Social History Tobacco Use Types Packs/Day Years Used Date Smoking Tobacco: Never Assessed Sex and Gender Information Value Date Recorded Sex Assigned at Not on file Gender Identity Not on file Sexual Orientation Not on file Plan of Treatment Not on file Care Teams Cardiac Sonographer Relationship Specialty Start Date End Date Sukhwinder Yuan MD [address] [place] [address] PCP - General 01/01/21
--- OUTSIDE RECORDS SUMMARY | 2024-06-01 09:21 | XMS_ITS | Clinical Summary ---
Author Organization [facility] Address [address] [place] [address]. 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 Encounters Date Type Department Care Team Description 05/25/2024 Telephone [facility] [address] [address] Barbara Rosario FNP Information ([employer]) 05/15/2024 Telephone [facility] [address] [address] Barbara Rosario, HEAD OF DIGITAL ADVERTISING & INTEGRATION Medication 04/14/2024 Telephone [facility] [address] [address] Barbara Rosario, HEAD OF DIGITAL ADVERTISING & INTEGRATION Results 04/06/2024 Telephone [facility] [address] [address] Finn Blevins MD Surgical Clearance 04/05/2024 11:00 AM FIELD SUPERINTENDENT - 04/05/2024 11:59 PM FIELD SUPERINTENDENT Hospital Encounter [facility] Sleep Lab [address] [place] [address] Barbara Rosario FNP Coronary Artery Disease; Snoring; Fatigue Discharge Disposition: Home or Self Care (Routine Discharge) 04/05/2024 Travel 03/31/2024 8:57 AM FIELD SUPERINTENDENT - 03/31/2024 11:59 PM FIELD SUPERINTENDENT Hospital Encounter [facility] [address] [place] [address] Finn Blevins MD Discharge Disposition: Home or Self Care (Routine Discharge) 03/31/2024 Travel 03/20/2024 9:00 AM FIELD SUPERINTENDENT Office Visit [facility] [address] [place] [address] Barbara Rosario FNP Coronary Artery Disease; Murmur; Neurologic Problem 03/20/2024 Travel 03/15/2024 10:30 AM FIELD SUPERINTENDENT Office Visit [place] [address] [place] [address] Jose Camacho MD Carotid Stenosis 03/15/2024 Orders Only [facility] THREE [facility], [address] [address] Jose Camacho MD from Last 3 Months [...] from your doctor or pharmacy? Rarely 02/09/2024 [facility] Utilities Answer Date Recorded In the past 12 months has th e [employer], gas, oil, or water [employer] threatened to shut off services in your [...] often do you attend chur ch or episcopalian services? More than 4 times per year 02/09/2024 Do you belong to any clubs o r organizations such as temple groups, unions, fraternal or athletic groups, or [...] and heating? Not hard at all 02/09/2024 [facility] of Occupat ional Health - Occupational Stress [...] any time in the past 12 m [facility], were you homeless or living in a correction (including now)? No 02/09/2024 Sex and Gender [...] Comments Blood Pressure 120/80 03/20/2024 9:16 AM FIELD SUPERINTENDENT Pulse 83 03/20/2024 9:16 AM FIELD SUPERINTENDENT Temperature 36.5 ??C (97.7 ??F) 02/10/2024 10:36 AM C DT Respiratory Rate 16 02/10/2024 10:39 AM CDT Oxygen Saturation 98% 03/20/2024 9:16 AM FIELD SUPERINTENDENT Inhaled Oxygen Concentration - - Weight 75.8 kg (167 lb) 03/20/2024 9:16 AM FIELD SUPERINTENDENT Height 172.7 cm (5' 8 ) 03/20/2024 9:16 AM FIELD SUPERINTENDENT Body Mass Index 25.39 03/20/2024 9:16 AM FIELD SUPERINTENDENT Plan of Treatment Upcoming Encounters Date Type Department Care Team (Late st Contact Info) Description 03/06/2025 1:00 PM FIELD SUPERINTENDENT Appointment [facility] [address] [place] [address] Jose Camacho MD Three [facility]. [address] [place], [place] [address] 03/26/2025 9:30 AM FIELD SUPERINTENDENT [facility] [address] [place] [address] Barbara Rosario, DUONG 3 [facility] [address] [place], [place] [phone] Finn Blevins MD Three [facility]. 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 04/14/2024 10:04 AM Patient Information First Name: DEMARCO Last Name: MARGOT ID: [id number] Date: 1940 Age: 83 Gender: Male BMI: [...] per Minute: ??0.2 Rev. ?? Printed on:04/14/2024 04/06/2024,[id number],1940,Male *The automatic analysis events or stages have been edited. 539 Page 1 of 2 Sleep Study Report SUMMARY/DIAGNOSIS 1.) Mild Obstructive Sleep Apnea. RECOMMENDATIONS [place] treatment option should be discussed with the [...] snoring and other sleep-related issues, such as URGENT CARE PHYSICIAN depressants, especially at bedtime. Raw data reviewed and electronically signed by: Luisito [place] ??on 04/14/2024 10:02:30 AM at ??4:02:35PM, [facility] us Barbara Rosario [facility] ORDERABLES Final Result [facility] [address] [place] [address], * LIPID PANEL (03/31/2024 9:02 AM [facility]) CHOLESTEROL 77 <200.0 MG/DL 03/31/2024 9:25 AM [facility] TRIGLYCERIDES 76 <150 MG/DL 03/31/2024 9:25 AM [facility] HDL 50 >40.0 MG/DL 03/31/2024 9:25 AM [facility] LDL (CALCULATED) 12 <100 MG/DL 03/31/20 9:25 AM [facility] NON HDL CHOLESTEROL 27 <130 MG/DL 03/31 9:25 AM [facility] CHOL/HDL RATIO 1.5 0.0 - 4.5 03/31/2024 9:25 AM [facility] VLDL CALCULATION 15 5 - 55 MG/DL 03/31/2024 9:25 AM [facility] LIPID INTERPRETATION 03/31/2024 9:25 AM [facility] Comment: NIH CONCENSUS REPORT RECOMMENDATIONS: [...] ?LDL ? >=160 ?>=130 03/31/2024 9:02 AM FIELD SUPERINTENDENT us Finn Blevins MD LABORATORY Final Resul t [facility] () [facility] [address] [place] [address], [place] [phone] from Last 3 Months Insurance [employer] Advance Directives * Full Code (Latest Code Status on File) Date Activated Date Inactivated Comments 02/10/2024 2:38 AM 02/10/2024 3:49 PM Care Teams Sales And Customer Relations Rep Relationship Specialty Start Date End Date Hortensia Alarcon, [facility] [address] [place] [address] PCP - General Nurse Practitioner Family 02/09/24 Finn Blevins MD [facility]. [address] [place] [address] Jada Supervisor [employer] Shop CARDIOVASCULAR DISEASE 10/02/15
--- OUTSIDE RECORDS SUMMARY | 2024-06-01 09:21 | XMS_ITS | Encounter Summary ---
Author Organization [facility] Address [address] [facility] [place] [address] Care Team Providers Care Claim Technician Name Role Phone Sukhwinder Yuan MD Primary Care Provider [phone] Encounter Details Date Type Department Care Team (Late st Contact Info) Description 11/18/2022 Lab Requisition [facility] [address] [facility], [place] [address] Kamille Billings DO [address] [facility] 3 [place] [address] Social History Tobacco Use Types Packs/Day Years [...] CDT) Case Report Dermatopathology Report ? Case: [id number] ? Authorizing Provider: ??Kamille Billings, DO ?? [...] of a non-oriented ellipse of skin measuring 43n62j7 mm. The epidermal surface is unremarkable. The [...] characteristic determined by the Dermatopathology Laboratory at [facility], directed by Dr. Mohan Hitchcock. These tests need not be, and therefore are not, approved by the [place] Food and Drug Administration. The tests are used for clinical purposes. Billing Codes Specimen Charges Stain Charges [id number] 1 3 1:15 PM CDT DERMATOPATHOLOGY LABORATORY Embedded Images 3 1:15 PM CDT DERMATOPATHOLOGY LABORATORY Pathology/Cytolo gy TISSUE SPECIMEN FROM SKIN / Unknown 11/18/2022 1:50 PM CDT 11/20/2022 7:49 AM CDT Kamille Billings DO LAB - PATHOLOGY/C YTOLOGY ORDERABLES DERMATOPATHOLOGY LABORATORY [facility] - Department of Dermatology [facility] Medicine [address] [place] [address], [address]rd Floor [address] [phone] documented in this encounter Visit Diagnoses Not on filedocumented in this encounter Care Teams Claim Technician Relationship Specialty Start Date End Date Sukhwinder Yuan MD [address] [place] [address] PCP - General 01/01/21 documented as of this encounter
--- OUTSIDE RECORDS SUMMARY | 2024-06-01 09:21 | XMS_ITS | Encounter Summary ---
Author Organization [facility] Address [address] [place] [address]. [place] [address] [place] [address] Care Team Providers Care Cut File Clerk Name Role Phone Sukhwinder Yuan MD Primary Care Provider [phone] Finn Blevins MD Unavailable [phone] Ghulam Ford MD Primary Care Provider [phone] Hortensia Alarcon [facility] Primary Care Provider + Encounter Details Date Type Department Care Team (Late st Contact Info) Description 12/19/2019 Abstract [facility] at [address] [address] Destinee Mdeina MA Social History Tobacco Use Types Packs/Day [...] st Contact Info) Description 03/06/2025 1:00 PM BUDGET ENGINEER Appointment [facility] [address] [place] [address] Jose Camacho MD Three [facility]. [address] [place], [place] [address] 03/26/2025 9:30 AM BUDGET ENGINEER Office Visit [facility] [address] [place] [address] Barbara Rosario FNP 3 [facility] [address] [place], [place] [address] Finn Blevins MD Three [facility]. [address] [place], [place] [address] documented as of this encounter Procedures Procedure [...] Final Result * LIPID PANEL (02/12/2021) Pathologist [facility] CHOLESTEROL 89 HDL 35 TRIGLYCERIDES 92 NON HDL CHOLESTEROL 54 LDL (CALCULATED) 36 02/12/2021 us Doc [facility] LABORATORY Final Result * PROSTATE SPECIFIC ANTIGEN,TOTAL (12/12/2019) Pathologist [facility] PSA 0.6 12/12/2019 Doc [facility] LABORATORY Edited Resul t - Final * CBC (OUTSIDE LAB) (12/12/2019) Pathologist [facility] WBC 3.8 HGB 12.2 HCT 35.9 PLT 113 12/12/2019 [facility] LAB-OUTSIDE/ABSTRACTED Final Result * THYROID STIM HORMONE, TSH (12/12/2019) Pathologist [facility] TSH 0.41 0.40 - 4.50 12/12/2019 us Doc [facility] LABORATORY Final Result * COMPREHENSIVE METABOLIC PANEL (12/12/2019) Pathologist [facility] SODIUM S/P/B 139 POTASSIUM S/P/B 4.2 CO2 [...] on filedocumented in this encounter Care Teams Cut File Clerk Relationship Specialty Start Date End Date Sukhwinder Yuan MD PCP - General INTERNAL MEDICINE 10/02/15 03/02/22 Ghulam Ford MD [address] [place] [address] PCP - General FAMILY PRACTICE 03/03/22 02/08/24 Hortensia Alarcon, [facility] [address] [place] [address] PCP - General Nurse Practitioner Family 02/09/24 Finn Blevins MD [facility]. [address] [address] Jada Floor Surfacer CARDIOVASCULAR DISEASE 10/02/15 documented as of this encounter
--- OUTSIDE RECORDS SUMMARY | 2024-06-01 09:21 | XMS_ITS | Encounter Summary ---
Author Organization [facility] Address [address] [place] [address]. [place] [address] [place] [address] Care Team Providers Care Public Works Manager Name Role Phone Sukhwinder Yuan MD Primary Care Provider [phone] Finn Blevins MD Unavailable [phone] Ghulam Ford MD Primary Care Provider [phone] Hortensia Alarcon [facility] Primary Care Provider + Encounter Details Date Type Department Care Team (Late st Contact Info) Description 11/09/2016 Abstract [facility] AT [address] [address] Destinee Medina MA Social History [...] st Contact Info) Description 03/06/2025 1:00 PM BUSINESS OFFICE COORDINATOR Appointment [facility] [address] [place] [address] Jose Camacho MD Three [facility]. [address] [place], [place] [address] 03/26/2025 9:30 AM BUSINESS OFFICE COORDINATOR Office Visit [facility] [address] [place] [address] Barbara Rosario, DUONG 3 [facility] [address] [place], [place] [address] Finn Blevins MD Three [facility]. [address] [place], [place] [address] documented as of this encounter Procedures Procedure [...] Final Result * VITAMIN B-12 (10/01/2016) Pathologist [facility] VITAMIN B12 S/P/B 379 10/01/2016 us Doc [...] on filedocumented in this encounter Care Teams Public Works Manager Relationship Specialty Start Date End Date Sukhwinder Yuan MD PCP - General INTERNAL MEDICINE 10/02/15 03/02/22 Ghulam Ford MD [address] [place] [address] PCP - General FAMILY PRACTICE 03/03/22 02/08/24 Hortensia Alarcon, OIL TANKER CAPTAIN- [address] [place] [address] PCP - General Nurse Practitioner Family 02/09/24 Finn Blevins MD [facility]. [address] [address] [place] Inseamer CARDIOVASCULAR DISEASE 10/02/15 documented as of this encounter
--- OUTSIDE RECORDS SUMMARY | 2024-06-01 09:21 | XMS_ITS | Clinical Summary ---
Author Organization [facility] Address [address], [facility] [address] [place] [address] Phone Care Team Providers Care Experimental Mechanic Electrical Name Role Phone Sukhwinder Yuan MD Primary Care Provider [phone] Allergies No known active allergies Medications tamsulosin (FLOMAX) 0.4 MG Capsule TAKE ONE CAPSULE BY MOUTH AT BEDTIME 0 7 Active metoprolol Succinate (TOPROL-XL) 25 MG TABLET SR 24 HR Take 25 mg by mouth daily. 11 7 Active Aspirin 81 MG Tablet Take 81 mg by mouth daily. Active fluticasone (FLONASE) 50 MCG/ACT Suspension 1 Active levothyroxine (SYNTHROID) 100 MCG Tablet Take 100 mcg by mouth daily. 1 Active Ferrous Sulfate 325 (65 Fe) MG Tablet Delayed Response Take 1 Tablet by mouth daily. Active febuxostat (ULORIC) 40 MG Tablet Take 40 mg by mouth daily. 1 Active allopurinol (ZYLOPRIM) 300 MG Tablet Take 300 mg by mouth daily. 2 Active sildenafil citrate (VIAGRA) 100 MG Tablet TAKE ONE TABLET DAILY NEEDED FOR SEXUAL ACTIVITY ADMINISTER 30 MINUTES TO 4 HOURS BEFORE ACTIVITY 3 Active Apoaequorin (Prevagen) 10 MG Capsule Take by mouth. Acti ve atorvastatin (LIPITOR) 80 MG Tablet Take 80 mg by mouth. 4 Active clopidogrel (PLAVIX) 75 MG Tablet Take 75 mg by mouth daily. 4 Active Active Problems Problem Noted Date Diagnosed Date Pancytopenia 04/08/2017 Anemia 01/28/2017 Thrombocytopenia, acquired 01/28/2017 Encounters Date Type Department Care Team Description 03/02/2024 1:00 PM CDT Office [facility] [address] [place] [address] Mai Capellan, DAY HAUL OR FARM CHARTER BUS DRIVER, WHITE HAT HACKER Pancytopenia (HCC) (Primary Dx) 03/02/2024 Travel from Last 3 Months Immunizations Immunization Administration Dates Next Due Covid-19, Mrna, Lnp-s, Pf, 30 Mcg/0.3 Ml Dose (P fizer) 06/28/2020,06/05/2020 Influenza, Quadrivalent, Adjuvanted 02/06/2020 Family History Medical History Relation Name Comments Aneurysm Father Cancer Mother Relation Name Status Comments Father Mother mouth Social History Tobacco Use Types Packs/Day Years Used Date Smoking Tobacco: Never Smokeless Tobacco: Never Tobacco Cessation:Counseling Given: Not Answered Alcohol Use Standard Drinks/Week Comments No 0 (1 standard drink = 0.6 oz pur e alcohol) PHQ-2 Answer Date Recorded Total Score - Questions 1-9 0 11/0 08/2020 Sex and Gender Information Value Date Recorded Sex Assigned at Not on file Legal Sex Male 11:59 AM CDT Gender Identity Not on file Sexual Orientation Not on file Last Filed Vital Signs Vital Sign Reading Time Taken Comments Blood Pressure 120/72 03/02/2024 1:12 PM CDT Pulse 65 03/02/2024 1:12 PM CDT Temperature 36.2 ??C (97.1 ??F) 03/02/2024 1:12 PM CD T Respiratory Rate 18 03/02/2024 1:12 PM CDT Oxygen Saturation 100% 03/02/2024 1:12 PM CDT Inhaled Oxygen Concentration - - Weight 74.8 kg (165 lb) 03/02/2024 1:12 PM CDT Height 172.7 cm (5' 8 ) 03/02/2024 1:12 PM CDT Body Mass Index 25.09 03/02/2024 1:12 PM CDT Plan of Treatment Upcoming Encounters Date Type Department Care Team (Late st Contact Info) Description 03/01/2025 1:00 PM CDT [facility] [address] [place] [address] Erwin Roa MD [address] [place] [address] Health Maintenance Due Date Last Done Comments Hepatitis C Virus (HCV) Screening 1940 TdaP Immunization 1940 Pneumococcal Immunization (5 0+ years) (1 of 1 - PCV) 1992 Zoster Immunization (1 of 2) 1992 Respiratory Syncytial Virus (RSV) Immunization (Adult) (1 - 1-dose 75+ series) 2017 SARS-COV-2 Immunization ( season) 2024 04/18/2021, 06/28/2020, 06/05/2020 Influenza Immunization Completed , 02/24/2022, 02/06/2020 Hepatitis B Immunization Aged Out No longer eligible based on patient's age to complete this topic Meningococcal Immunization (ACWY) Aged Out No longer eligible b ased on patient's age to complete this topic Rotavirus Immunization Aged Out No lo nger eligible based on patient's age to complete this topic Insurance MEDICARE C AETNA Care Teams Experimental Mechanic Electrical Relationship Specialty Start Date End Date Sukhwinder Yuan MD [facility] [place] [address] PCP - General Internal Medicine 12/23/16
--- NOTE | 2024-06-01 10:42 | P.PNOP_ITS ---
Progress Note: A&P Assessment and Plan (1) S/P total knee arthroplasty: Qualifiers: Laterality: right Qualified Code(s): Z96.651 - Presence of right artificial knee joint Code(s): Z96.659 - Presence of unspecified artificial knee joint Status: Acute Assessment and Plan: POD #1 : Right TKA Continue PT/OT. WBAT. Walker. HIGH FALL RISK. Continue pain control. Ice Knee. Protect skin. DVT prophylaxis with resumed Aspirin/Plavix at home dose per Dr. Jaime. SCDs. Incentive Spirometry Use reviewed. Monitor Dressing. Change prior to discharge. Bowel Regimen. Dispo: Home with Home Health pending progress with PT/OT Plan Reviewed history, exam, radiographs and current labs with attending MD and covering surgeon, Dr. Jaime, who agrees with current plan as indicated above. No further recommendations from Dr. Jaime at this time. Subjective Subjective Date/Time Seen: 06/01/24 10:42 Post Op day: 1 Interval history: POD #1: Right TKA Patient doing very well. Pain well controlled. No new concerns. Sitting up in the chair. Hopeful for d/c home today. Review of Systems Review of Systems: All systems reviewed & are unremarkable except as noted in HPI and below Constitutional: Constitutional: Denies fever(s) and Denies headache(s) ENT: Denies headache(s) Cardiovascular: Cardiovascular: Denies chest pain, Denies diaphoresis, Denies palpitations and Denies dyspnea Respiratory: Respiratory: Denies dyspnea Gastrointestinal: Gastrointestinal: Denies abdominal pain, Denies constipation, Denies nausea and Denies vomiting Genitourinary: Genitourinary: Denies dysuria and Reports nocturia Musculoskeletal: Musculoskeletal: Reports arthralgias (Right Knee ) and Reports joint swelling (Right Knee ) Neurologic: Denies headache(s) Endocrine: Endocrine: Denies palpitations Exam Const: General: comfortable and no acute distress Resp: Effort & Inspection: normal respiratory effort Cardio: Rate: regular rate Rhythm: regular rhythm GI: GI Palp: Yes Soft to palpation, No Tenderness to palpation present (GI) and No Guarding due to palpation present (GI) Skin: General skin exam: wounds noted Wounds: wounds noted Other: Incision c/d/i. No surrounding redness/warmth. No hematoma. Mild ecchymosis. No wound dehiscence Neuro: Cognition (Neuro): normal cognition Other: NV intact aside from block. Moves toes. Sensation intact to light touch. +ankle dorsiflexion/plantarflexion. Extrem: Right lower extremity: normal to inspection, knee Details: tenderness (diffuse, mild ) Location: of the patella, swelling (diffuse, consistent with surgical intervention ), abnormal ROM Details: pain with active ROM during, pain with passive ROM during and with range as follows (limited due to recent surgical intervention ); able to extend lower leg actively and ecchymosis (mild ), lower leg (Negative Alexandra's Sign ) Details: normal to inspection; no erythema and no tenderness, ankle (+ankle dorsiflexion/plantarflexion ) Details: normal to inspection, no edema and normal ROM; no tenderness, no swelling and no ecchymosis and foot Details: normal capillary refill, normal to inspection, vascular exam Details: dorsalis pedis pulse present and motor-sensory exam Details: light-touch normal; no tenderness Left lower extremity: normal to inspection Psych: Mental Status: mental status grossly normal Objective Data Vital Signs Vital Signs: Vital Signs - 24 hr 05/31/24 13:05 05/31/24 13:07 05/31/24 13:15 Temperature 36.2 C L Pulse Rate 65 60 Respiratory Rate 12 12 Blood Pressure 132/76 167/69 H Pulse Oximetry 100 100 100 Oxygen Delivery Simple Face Mask Simple Face Mask Simple Face Mask Oxygen Flow Rate 8 8 8 05/31/24 13:30 05/31/24 13:45 05/31/24 13:49 Temperature Pulse Rate 66 64 Respiratory Rate 10 L 10 L Blood Pressure 137/71 125/74 Pulse Oximetry 100 100 100 Oxygen Delivery Simple Face Mask Simple Face Mask Room Air Oxygen Flow Rate 8 8 05/31/24 14:00 05/31/24 14:15 05/31/24 14:33 Temperature 36.7 C 36.3 C L Pulse Rate 59 L 66 77 Respiratory Rate 12 10 L 18 Blood Pressure 140/72 130/68 145/90 H Pulse Oximetry 96 100 99 Oxygen Delivery Room Air Room Air Oxygen Flow Rate 05/31/24 14:40 05/31/24 16:03 05/31/24 16:35 Temperature 36.3 C L 36.4 C L Pulse Rate 66 62 Respiratory Rate 14 14 Blood Pressure 145/77 H 98/67 L Pulse Oximetry 100 100 95 Oxygen Delivery Room Air Oxygen Flow Rate 05/31/24 18:40 05/31/24 20:00 05/31/24 23:48 Temperature 36.6 C 36.9 C Pulse Rate 69 70 Respiratory Rate 16 16 Blood Pressure 108/76 110/64 Pulse Oximetry 99 95 Oxygen Delivery Room Air Oxygen Flow Rate 06/01/24 04:00 06/01/24 08:00 06/01/24 08:08 Temperature 36.3 C L 36.6 C Pulse Rate 53 L 67 60 Respiratory Rate 16 20 Blood Pressure 112/65 140/70 Pulse Oximetry 97 100 Oxygen Delivery Oxygen Flow Rate 06/01/24 08:40 Temperature Pulse Rate Respiratory Rate Blood Pressure Pulse Oximetry Oxygen Delivery Room Air Oxygen Flow Rate Intake/Output Intake/Output: Intake & Output 05/29/24 05/30/24 05/31/24 06/01/24 23:59 23:59 23:59 23:59 Intake Total 1000 300 Output Total 300 300 Balance 700 0 Meds/Results Medications: Active Medications Generic Name Dose Route Start Last Admin Trade Name Freq PRN Reason Stop Dose Admin Acetaminophen 500 mg 05/31/24 14:18 Acetaminophen 500 Mg Tablet PO Q6H PRN Pain Rated 1-3 Aspirin 325 mg 05/31/24 21:00 06/01/24 08:07 Aspirin 325 Mg Enteric Tablet PO 325 mg Q12HR EUN Administration Atorvastatin Calcium 80 mg 05/31/24 21:00 05/31/24 20:52 Atorvastatin 40 Mg Tablet PO 80 mg QHS EUN Administration Celecoxib 200 mg 05/31/24 17:00 06/01/24 08:08 Celecoxib 200 Mg Capsule PO 200 mg BIDWM EUN Administration Diazepam 5 mg 05/31/24 14:18 05/31/24 16:09 Diazepam (*Crx) 5 Mg Tablet PO 5 mg Q8H PRN Administration Spasms Diphenhydramine HCl 25 mg 05/31/24 14:18 Diphenhydramine Hcl Inj 50 Mg/Ml Vial IV PUSH Q6H PRN Itching Famotidine 20 mg 05/31/24 21:00 06/01/24 08:08 Famotidine 20 Mg Tablet PO 20 mg Q12HR EUN Administration Hydromorphone HCl 1 mg 05/31/24 14:18 Hydromorphone Hcl Inj (*Crx) 1 Mg/Ml Syr IV PUSH Q2H PRN Breakthrough Pain Rated 7-10 or NPO Hydromorphone HCl 0.5 mg 05/31/24 14:18 Hydromorphone Hcl Inj (*Crx) 1 Mg/Ml Syr IV PUSH Q2H PRN Breakthrough Pain Rated 4-6 or NPO Cefazolin Sodium 2 gm in 50 mls @ 100 mls/hr 05/31/24 19:00 06/01/24 03:50 Ancef 2 Gm/D5w 50 Ml IVPB 06/01/24 11:29 Infused Q8H EUN Infusion Ibuprofen 800 mg in 200 mls @ 400 mls/hr 05/31/24 14:18 Caldolor 800 Mg/200 Ml IVPB Q6H PRN Breakthrough Pain Rated 1-3 or NPO Levothyroxine Sodium 100 mcg 06/01/24 06:30 06/01/24 05:34 Levothyroxine Sodium 100 Mcg Tablet PO 100 mcg DAILY@0630 EUN Administration Metoprolol Succinate 25 mg 06/01/24 09:00 06/01/24 08:08 Metoprolol Succinate Ext Rel 25 Mg Tabcr PO 25 mg DAILY EUN Administration Naloxone HCl 0.1 mg 05/31/24 14:18 Naloxone Hcl 0.4 Mg/Ml Vial IV PUSH Q2M PRN Opiate Reversal Ondansetron HCl 4 mg 05/31/24 14:18 Ondansetron Inj 4 Mg/2 Ml Vial IV PUSH Q4H PRN Nausea And Vomiting Oxycodone/Acetaminophen 1 tablet 05/31/24 14:18 Oxycodone/Acetaminophen (*Crx) 5-325 Mg Tablet PO Q4H PRN Pain Rated 4-6 Oxycodone/Acetaminophen 1 tab 05/31/24 14:18 05/31/24 16:09 Oxycodone/Acetaminophen (*Crx) 10-325 Mg Tablet PO 1 tab Q6H PRN Administration Pain Rated 7-10 Polyethylene Glycol 17 gm 06/01/24 09:00 06/01/24 08:08 Polyethylene Glycol 3350 17 Gm Powd.Pack PO 17 gm QAM EUN Administration Senna/Docusate Sodium 2 tab 05/31/24 17:00 06/01/24 08:07 Senna/Docusate Sodium Tablet PO 2 tab BID EUN Administration Tamsulosin HCl 0.4 mg 06/01/24 09:00 06/01/24 08:08 Tamsulosin Hcl 0.4 Mg Capsule PO 0.4 mg DAILY EUN Administration Radiology Results: ITS Impressions Knee X-Ray 05/31/24 13:27 IMPRESSION: 1. Total right knee arthroplasty in near-anatomic alignment. Labs Labs: Laboratory Results - last 24 hr 06/01/24 06:16 WBC 9.1 RBC 2.35 L Hgb 8.9 L Hct 26.5 L MCV 112.8 H MCH 37.9 H MCHC 33.6 RDW 14.5 Plt Count 103 L MPV 10.2 Immature Gran % (Auto) 0.6 H Neut % (Auto) 84.8 H Lymph % (Auto) 6.7 L [place] % (Auto) 7.8 Eos % (Auto) 0.0 Baso % (Auto) 0.1 L Lymph # (Auto) 0.61 L [place] # (Auto) 0.7 H Eos # (Auto) 0.0 Baso # (Auto) 0.0 Abs Immat Gran (auto) 0.05 H Absolute Neuts (auto) 7.7 H Absolute Nucleated RBC 0.000 Nucleated RBC % 0.0 Platelet Estimate Decreased Macrocytosis 2+ Ovalocytes 1+ Schistocytes Not Reportable Sodium 137 Potassium 4.4 Chloride 103 Carbon Dioxide 26 Anion Gap 8 BUN 34 H D Creatinine 1.04 Estim Creat Clear Calc 48 Estimated GFR > 60 Glucose 123 H Calcium 8.9 Quality VTE Prophylaxis VTE prophylaxis: pharmacologic ordered
[2024-06-01 12:00] VITALS: BP 113/61; PULSE 63; RESP 20; TEMP 36.5; O2SAT 100
--- NOTE | 2024-06-01 13:24 | P.PNAN_ITS ---
Anes - Prog Note Post-Op Date/Time: 06/01/24 13:24 Vital Signs: Last Vital Signs Temp 36.5 C 06/01/24 12:00 Pulse 63 06/01/24 12:00 Resp 20 06/01/24 12:00 BP 113/61 06/01/24 12:00 Pulse Ox 100 06/01/24 12:00 O2 Del Method Room Air 06/01/24 08:40 O2 Flow Rate 8 05/31/24 13:45 Pain Score (VAS): 2 I/O: Intake & Output 05/31/24 06/01/24 06/01/24 23:59 07:59 15:59 Intake Total 50 300 50 Output Total 300 300 Balance -250 0 50 Laboratory Tests 06/01/24 06:16 06/01/24 06:16 06/01/24 06:16 WBC 9.1 RBC 2.35 L Hgb 8.9 L Hct 26.5 L MCV 112.8 H MCH 37.9 H MCHC 33.6 RDW 14.5 Plt Count 103 L MPV 10.2 Immature Gran % (Auto) 0.6 H Neut % (Auto) 84.8 H Lymph % (Auto) 6.7 L [place] % (Auto) 7.8 Eos % (Auto) 0.0 Baso % (Auto) 0.1 L Lymph # (Auto) 0.61 L [place] # (Auto) 0.7 H Eos # (Auto) 0.0 Baso # (Auto) 0.0 Abs Immat Gran (auto) 0.05 H Absolute Neuts (auto) 7.7 H Absolute Nucleated RBC 0.000 Nucleated RBC % 0.0 Platelet Estimate Decreased Macrocytosis 2+ Ovalocytes 1+ Schistocytes Not Reportable Sodium 137 Potassium 4.4 Chloride 103 Carbon Dioxide 26 Anion Gap 8 BUN 34 H D Creatinine 1.04 Estim Creat Clear Calc 48 Estimated GFR > 60 Glucose 123 H Calcium 8.9 Patient Feedback: Patient satisfied with anesthetic care.
--- NOTE | 2024-06-01 16:20 | PCPTNOTE ---
On 06/01/24, the student, DAGO Sibley, provided care and completed [employer] documentation on this patient. I have reviewed the student's documentation and agree with the findings.
== END 2024-06-01 14:40 | disposition home or self-care (01) ==
LOC: ANH3MEDSUR 06-01 08:33 → ANHSURGERY 06-01 08:57 → ANH3MEDSUR 06-01 11:03
PROVIDERS: PCP Nurse Practitioner Family; Visit Provider Orthopaedic Surgery
PROC: (CPT 27447; principal; 2024-05-31 10:30)
DX: M17.11 Unilateral primary osteoarthritis, right knee (principal); M25.761 Osteophyte, right knee; G89.29 Other chronic pain; E03.9 Hypothyroidism, unspecified; E78.5 Hyperlipidemia, unspecified; I10 Essential (primary) hypertension; I25.10 Atherosclerotic heart disease of native coronary artery without angina pectoris; G89.18 Other acute postprocedural pain; Z79.82 Long term (current) use of aspirin; Z79.02 Long term (current) use of antithrombotics/antiplatelets; Z98.890 Other specified postprocedural states; Z95.1 Presence of aortocoronary bypass graft; Z80.9 Family history of malignant neoplasm, unspecified; Z82.49 Family history of ischemic heart disease and other diseases of the circulatory system
CPT/HCPCS: 64447; 27447; 36415; 73560; 80048; 80307; 81001; 82040; 85025; 85610; 85730; 86850; 86900; 86901; 87641; 93005; 97110; 97116; 97161; 97165; 97530; 97535; A9270; C1713; C1776; J0171; J0690; J1100; J1885; J2270; J2405; J2704; J2795; J3010; J3370; J7120